=== PATIENT | female | born 1995 | race Caucasian/White ===

== ENCOUNTER 2023-10-07 14:03 | Inpatient (IN) | payer MEDICAID, SELFPAY ==
[2023-10-07] VITALS (43 sets, daily range): BP systolic 104–128; BP diastolic 51–74; PULSE 84–112; RESP 13–26; TEMP 36.2–36.8; O2SAT 84–98; BMI 39.9
--- NOTE | ~2023-10-07 | XR_ITS ---
EXAMINATION: XR chest 1V portable DATE: 10/07/2023 15:03 INDICATION: Shortness of breath and recent pneumonia TECHNIQUE: frontal view of the chest was obtained. COMPARISON: Chest radiograph dated 12/16/[address] dated 10/07/2023 FINDINGS: Airspace opacities in the bilateral mid and lower lung zones with basilar predominance. Pattern on CT favors pneumonia over pulmonary edema. No pleural effusion or pneumothorax. The cardiomediastinal si lhouette is normal. IMPRESSION: 1. Opacities in bilateral mid and lower lung zones most likely related to pneumonia. Reviewed, dictated and finalized at location A. WARE DESIGN ENGINEER IMPRESSION: 1. Opacities in bilateral mid and lower lung zones most likely related to pneum onia.
--- NOTE | ~2023-10-07 | CT_ITS ---
EXAMINATION: CTA chest PE protocol DATE: 10/07/2023 14:44 INDICATION: Hypoxia and dyspnea TECHNIQUE: Computed tomography (CT) pulmonary angiogram of the chest was performed with 100 mL Omnipa que-350 intravenous contrast. Additional 3D reconstructions utilizing coronal maximum intensity proje ction (MIP) were performed. Automated exposure control and iterative reconstruction technique were em ployed. The dose-length product was 849.86 mGy-cm. COMPARISON: None FINDINGS: Good contrast opacification of the pulmonary arteries. There is mild streak artifact from dense contr ast in the superior vena cava and right atrium. Mild scattered respiratory motion artifact which only mildly decreases sensitivity in some of the smaller basilar subsegmental pulmonary arteries. No pulm onary embolism identified. Extensive tree-in-bud pattern with small centrilobular nodular groundglass opacities throughout the bilateral lower lobes and in the dependent aspect of the bilateral upper lo bes, right middle lobe and lingula consistent with endobronchial spread of disease most likely pneumo sanjiv. More dense consolidation in the basilar segments of the left lower lobe and to lesser degree at the posterior lingula and basilar right lower lobe likely combination of additional pneumonia and ate lectasis. Thinner bands of discoid atelectasis in the bilateral lower lobes. No pleural effusion. Hea rt size is normal. Small pericardial effusion. Thoracic aorta is normal in caliber with no dissection . There are multiple mildly enlarged bilateral hilar and mediastinal lymph nodes which are likely mimi ctive. Visualized upper abdomen is unremarkable. Mild to moderate thoracic spondylosis with chronic m ild anterior wedging at T7 and T11. IMPRESSION: 1. No pulmonary embolism. 2. Extensive bilateral lung disease most prominent in the lower lobes and to lesser degree in the rem aining lobes with pattern most consistent with pneumonia. 3. Likely reactive mediastinal and bilateral hilar lymphadenopathy which is likely reactive. Reviewed, dictated and finalized at location A. CTOR [employer] MARKETING ANALYTICS IMPRESSION: 1. No pulmonary embolism. 2. Extensive bilateral lung disease most prominent in the lower lobes and to le sser degree in the remaining lobes with pattern most consistent with pneumonia. 3. Likely reactive mediastinal and bilateral hilar lymphadenopathy which is lik mercy reactive.
--- NOTE | 2023-10-07 14:14 | ECG_ITS ---
Measurements Intervals [place] Rate: 109 P: 21 [place]: 150 QRS: 51 QRSD: 84 T: -40 QT: 297 QTc: 401 Interpretive Statements SINUS TACHYCARDIA ST-T WAVE ABNORMALITY IN ANTEROLAT/INF LEADS- CONSIDER ISCHEMIA BASELINE ARTIFACT- I, II, III, AVR, AVL, AVF ABNORMAL ECG NO PREVIOUS ECG AVAILABLE FOR COMPARISON Electronically Signed On 10-08-2023 10:12:45 [employer] by Bartolome Drake D.O.
[2023-10-07 14:31] LABS: Base Excess ABG -0.2 mEq/l (+/-2.0); Carboxyhemoglobin 0.9 % THb (0-2.0); Fractional Inspired Oxygen 36 %; Methemoglobin ABG 0.2 %THb (0-1.5); Oxygen Content ABG 19.1 %vol (16.0-22.0); Oxygen Saturation ABG 95.7 % (95.0-100.0); Oxyhemoglobin 93.5 % THb (90.0-100.0); PCO2 ABG 25.9 mmHg (35.0-45.0); PO2 ABG 68.6 mmHg (80.0-100.0); PO2 FiO2 Ratio Arterial Blood 1.91 %; Reduced Hemoglobin 5.4 %THb (0-5.0); Total Hemoglobin 14.5 g/dL (12.0-18.0)
[2023-10-07 14:33] LABS: Device NASAL CANNULA; Modified Allen's Test Pass; Site Drawn LEFT RADIAL; pH ABG 7.526 (7.350-7.450)
[2023-10-07 14:36] LABS: Estimated CRCL calculation 128 ml/min; Estimated Glomerular Filt Rate > 60
[2023-10-07 14:41] LABS: Basophils Absolute Auto 0.1 K/mm3 (0.0-0.1); Basophils Percent Auto 0.5 % (0.2-1.2); Eosinophils Absolute Auto 0.3 K/mm3 (0-0.3); Eosinophils Percent Auto 1.7 % (0-4.4); Hematocrit 42.5 % (37.0-47.0); Hemoglobin 13.7 g/dL (12.0-15.0); Immature Granulocyte Absolute 0.43 K/mm3 (0.00-0.031); Immature Granulocyte Percent A 2.6 % (0-0.5); Lymphocytes Absolute Auto 1.63 K/mm3 (0.9-3.2); Lymphocytes Percent Auto 9.7 % (18.3-44.2); Mean Corpuscular HGB Conc 32.2 g/dl (32-36); Mean Corpuscular Hemoglobin 29.8 pg (26-34); Mean Corpuscular Volume 92.4 fl (80-100); Mean Platelet Volume 9.7 fl (7.4-10.4); Monocytes Absolute Auto 1.2 K/mm3 (0.1-0.6); Monocytes Percent Auto 6.9 % (2.6-8.5); Neutrophils Absolute Auto 13.1 K/mm3 (1.3-6.7); Neutrophils Percent Auto 78.6 % (45.5-73.1); Platelet Count Result 413 k/mm3 (150-375); Red Cell Distribution Width 13.3 % (11.5-14.5); White Blood Count 16.7 K/mm3 (4.5-10.0)
[2023-10-07 14:50] LABS: Alanine Aminotransferase 33 U/L (6-35); Alkaline Phosphatase 86 U/L (38-126); Anion Gap 10 mmol/L (8-16); Aspartate Amino Transferase 25 U/L (14-36); Bilirubin,Total 0.6 mg/dL (0.2-1.3); Blood Urea Nitrogen 14 mg/dL (7-17); Calcium 9.1 mg/dL (8.4-10.2); Carbon Dioxide 26 mmol/L (22-30); Chloride 100 mmol/L (98-107); Estimated CRCL calculation 128 ml/min; Estimated Glomerular Filt Rate > 60; Glucose 112 mg/dL (65-110); Partial Thromboplastin Time 29.9 SECONDS (22.3-36.8); Potassium 3.6 mmol/L (3.4-5.0); Sodium 136 mmol/L (137-145)
[2023-10-07 14:51] LABS: Prothrombin Time 13.9 Seconds (11.1-14.7)
[2023-10-07 15:17] LABS: Influenza A QL RT-PCR Negative (Negative); Influenza B QL RT-PCR Negative (Negative); RSV RNA, RT-PCR Negative (Negative); SARS-CoV-2 RNA PCR Negative (Negative)
[2023-10-07] MEDS: AZITHROMYCIN 500 MG/NS 250 ML 500 MG/250 ML BAG 250 MG IVPB (15:50)
--- NOTE | 2023-10-07 16:05 | ED.SOB ---
HPI - SOB/Dyspnea General Chief Complaint: Shortness of Breath/Dyspnea Stated Complaint: low oxygen Time Seen by Provider: 10/07/23 14:13 History of Present Illness HPI Narrative: Patient is a 27-year-old female who presents ER with low oxygen saturation from her primary care physician's office. Patient developed infectious symptoms last week. She had a negative COVID test. She has been having cough and fever as well as exertional dyspnea. She went to the PCP today and was found to have pulse oximetry reading in the mid to low 80s. Patient does have a sister who currently is being treated for bacterial pneumonia. Related Data Home Medications Medication Instructions Recorded Confirmed ferrous sulfate 325 mg (65 mg 325 mg PO DAILY 01/26/20 02/25/23 iron) tablet Allergies Allergy/AdvReac Type Severity Reaction Status Date / Time nickel Allergy Unknown Unknown Verified 12/14/19 11:23 aripiprazole [From Abilify] AdvReac Muscle Verified 12/14/19 11:23 Spasms Review of Systems Review of Systems: All systems reviewed & are unremarkable except as noted in HPI and below Constitutional: Constitutional: Denies chills, Reports fatigue and Reports fever(s) ENT: Denies nasal congestion and Denies sore throat Cardiovascular: Cardiovascular: Denies chest pain, Denies rapid heart rate and Denies radiating jaw, neck or arm pain Respiratory: Respiratory: Reports cough and Reports dyspnea Gastrointestinal: Gastrointestinal: Denies abdominal pain, Denies diarrhea, Denies nausea and Denies vomiting PMFSH Past Medical History Medical History (Updated 10/07/23 @ 18:52 by Colt Adames MD) Body mass index (BMI) 35.0-35.9, adult (09/16/19) Chronic seborrheic dermatitis Dog bite Elevated high sensitivity C-reactive protein Hypersomnia Insomnia Iron deficiency anemia, unspecified Morbid obesity with BMI of 40.0-44.9, adult Muscle spasm Pelvic pain Rash and other nonspecific skin eruption Snoring Tardive dyskinesia Surgical History Surgical History (Updated 10/07/23 @ 18:50 by Colt Adames MD) No pertinent past surgical history Family History Family History Grandparent Diabetes mellitus Hypertension Family history of lung cancer, Onset Age: 71 Family history of primary malignant neoplasm of liver, Onset Age: 67 Mother Family history of migraine headaches Patient's mother is in good health Social History Social History (Updated 02/25/23 @ 10:15 by Rhonda Harrison MA) Smoking status: Never smoker Alcohol intake: never Substance use: never Substance use type: does not use Current Housing: Decline to Answer Concerned About Future Housing: Decline to Answer Difficulty Paying Gas/Electric Bills: Decline to Answer Difficulty Paying for Meds: Decline to Answer Currently Unemployed: Decline to Answer Education: Decline to Answer Difficulty w/ Childcare or Family Care: Decline to Answer Exam Narrative: GENERAL: Ill-appearing, well-nourished, and in mild acute distress. HEAD: Normocephalic, atraumatic. ENT: Mucous membranes moist. NECK: Supple. CHEST: Faint crackles throughout. Increased respiratory rate. HEART: Regular rate and rhythm. Normal peripheral pulses. ABDOMEN: Soft, nontender, nondistended. EXTREMITIES: Normal range of motion. No edema. SKIN: Warm, dry, no rash. NEURO: Alert and oriented x3. PSYCH: Normal mood and affect. Course Course Emergency Course: Patient with pneumonia. IV antibiotics ordered. Admit to hospitalist service and accepted by their service. Patient on high flow nasal cannula tolerating well. 1848: Patient currently being boarded in the ER. She has been turned up to 10 L on her high flow however she is now satting in the mid to high 80s. Patient be switched to BiPAP. Hospitalist service notified. Nebulizer treatment also ordered. Vital Signs Vital signs:
--- NOTE | 2023-10-07 17:52 | PC.NURSE ---
Called and spoke with Jah in chemistry about blood cultures saying ordered when both sets have been sent. This RN was told I am very busy and will take care of it eventually.
[2023-10-07] MEDS: IPRATROPIUM BR 0.02% INH SOLN 0.5 MG/2.5 ML VIAL 1.5 MG INHALATION (19:02)
[2023-10-07] MEDS: ALBUTEROL SULFATE NEB 2.5 MG/3 ML INH 15 MG INHALATION (19:03)
--- NOTE | 2023-10-07 20:55 | PM.IMHP ---
H&P: HPI History of Present Illness Date/Time: 10/07/23 19:00 Chief Complaint: Shortness of breath. Narrative: This is a pleasant 27-year-old female with history of depression anxiety presented to the emergency department from Dr. Young's office for evaluation of shortness of breath. The patient provides the following history. Her mother provides additional information, with the patient's permission. She has not been feeling well for approximately 10 days with productive cough, shortness of breath, fever, and poor appetite. She was started on Augmentin shortly after her symptoms began and her fever went away after about 4 days. Unfortunately she continues to cough and has increasing shortness of breath and she is feeling worse rather than better. Her sister had pneumonia not too long ago and she is worried she may have picked that up from her. Because of ongoing symptoms she went to her doctor's office and she was referred to the ED after she was found to have an SpO2 of 88% on room air. She denies recent travel, dysphagia and concerns for aspiration, smoking, and vaping. She has no history of asthma or allergies and denies environmental exposures. In the ED: She was afebrile on arrival. Blood pressures have been stable. SpO2 has been as low as 86% on room air. She was initially requiring upwards of 8 L high-flow nasal cannula however due to increasing shortness of breath and hypoxia she was started on BiPAP. Her labs were pretty unremarkable aside from a WBC count of 16.7. She tested negative for influenza, RSV, and COVID. Chest CTA showed no pulmonary embolism but did note extensive bilateral lung disease compatible with pneumonia and reactive lymphadenopathy. She was given an hour long nebulizer treatment and received 500 mg azithromycin and 1 g ceftriaxone. She is being admitted in this setting for further treatment. Review of Systems Review of Systems: Twelve systems were reviewed and are negative except for as per HPI. [facility] Past Medical History Medical History (Updated 10/08/23 @ 00:27 by Rekha Durant PA-C) Chronic seborrheic dermatitis Depression with anxiety Iron deficiency anemia, unspecified Tardive dyskinesia Surgical History Surgical History No pertinent past surgical history Family History Family History Grandparent Diabetes mellitus Hypertension Family history of lung cancer, Onset Age: 71 Family history of primary malignant neoplasm of liver, Onset Age: 67 Mother Family history of migraine headaches Patient's mother is in good health Social History Social History (Updated 10/08/23 @ 00:25 by Rekha Durant PA-C) Social History: Surrogate medical decision maker: Dorothy Albert, mother. Code status: Full code. Smoking status: Never smoker Alcohol intake: never Substance use: never Substance use type: does not use Lack of Transportation: No Lack of Food: Never True Current Housing: I Have Housing Concerned About Future Housing: No Difficulty Paying Gas/Electric Bills: No Difficulty Paying for Meds: No Currently Unemployed: No Education: High School Diploma/GED Difficulty w/ Childcare or Family Care: No Additional living arrangements comments: Lives with family in [place]. Additional occupation/education comments: Works in [employer]. Spiritual care concerns: No Meds Home Medications and Allergies Home Medications Medication Instructions Recorded Confirmed Type ferrous sulfate 325 mg (65 mg 325 mg PO DAILY 01/26/20 10/07/23 History iron) tablet fluoxetine 40 mg capsule 40 mg PO DAILY #90 caps 02/25/23 10/07/23 Rx Allergies Allergy/AdvReac Type Severity Reaction Status Date / Time nickel Allergy Unknown Unknown Verified 12/14/19 11:23 aripiprazole [From Abilify] AdvReac Muscle Verified 12/14/19 11:23 Spasm
--- NOTE | 2023-10-07 22:12 | ADMGEN ---
This patient, Maritza Albert, was admitted to IMU Room 203-01. Patient/family oriented to hospital policies and general routines including ID bracelet, bed and alarms, visiting hours, pain management, procedures, bathroom and other care routines, personal items, smoking policy, room service/diet, and visiting hours. Information on how to activate the Rapid Response Team has been discussed. Patient/Family are encouraged to report perceived risks to care and to ask questions if they do not understand what they are told or what they should do.
[2023-10-08] VITALS (25 sets, daily range): BP systolic 115–136; BP diastolic 56–75; PULSE 80–108; RESP 14–20; TEMP 36.3–37.2; O2SAT 93–99
[2023-10-08] MEDS: VANCOMYCIN 1,250 MG/NS 250 ML 1,250 MG/250 ML BAG 166.67 MG IVPB ×2 (01:21→03:01)
[2023-10-08] MEDS: IPRATROPIUM BR 0.02% INH SOLN 0.5 MG/2.5 ML VIAL INHALATION ×4 (01:35→20:01)
[2023-10-08] MEDS: ALBUTEROL SULFATE NEB 2.5 MG/3 ML INH INHALATION ×4 (01:36→20:01)
[2023-10-08 05:22] LABS: Hematocrit 38.5 % (37.0-47.0); Hemoglobin 12.3 g/dL (12.0-15.0); Mean Corpuscular HGB Conc 31.9 g/dl (32-36); Mean Corpuscular Hemoglobin 29.8 pg (26-34); Mean Corpuscular Volume 93.2 fl (80-100); Mean Platelet Volume 9.7 fl (7.4-10.4); Platelet Count Result 375 k/mm3 (150-375); Red Blood Count 4.13 M/mm3 (4.2-5.4); Red Cell Distribution Width 13.3 % (11.5-14.5); White Blood Count 13.3 K/mm3 (4.5-10.0)
[2023-10-08 05:47] LABS: Anion Gap 7 mmol/L (8-16); Blood Urea Nitrogen 12 mg/dL (7-17); Calcium 8.5 mg/dL (8.4-10.2); Carbon Dioxide 26 mmol/L (22-30); Chloride 103 mmol/L (98-107); Estimated CRCL calculation 141 ml/min; Estimated Glomerular Filt Rate > 60; Glucose 105 mg/dL (65-110); Magnesium 2.4 mg/dL (1.6-2.3); Potassium 3.9 mmol/L (3.4-5.0); Sodium 136 mmol/L (137-145)
[2023-10-08] MEDS: ENOXAPARIN 40 MG/0.4 ML SYRINGE SUB-Q (10:24)
[2023-10-08] MEDS: FERROUS SULFATE 325 MG TABLET DR PO (10:25)
[2023-10-08] MEDS: FLUoxetine HCL 20 MG CAPSULE 40 MG PO (10:25)
[2023-10-08] MEDS: guaiFENesin 12 HR 600 MG TABCR PO ×2 (10:25→20:23)
--- NOTE | 2023-10-08 11:24 | PM.IMPN ---
Progress Note: A&P Assessment and Plan (1) Acute respiratory failure with hypoxia: Code(s): J96.01 - Acute respiratory failure with hypoxia Status: Acute Assessment and Plan: Azithromycin, Rocephin initiated 10/07 Nebulizer treatments as needed Legionella/pneumococcal/mycoplasma antigens ordered and pending (2) Multifocal pneumonia: Code(s): J18.9 - Pneumonia, unspecified organism Status: Acute Assessment and Plan: See above (3) Depression with anxiety: Code(s): F41.8 - Other specified anxiety disorders Status: Acute Assessment and Plan: Continue home meds Plan DVT prophylaxis with SCDs GI prophylaxis not indicated Code status full code Subjective Date/time seen: 10/08/23 11:24 Interval history: 27-year-old female with history of depression anxiety presented to the emergency department from Dr. Young's office for evaluation of shortness of breath is currently being treated for multifocal pneumonia refractory to outpatient Augmentin treatment. No overnight events noted. No nausea, vomiting or diarrhea. No fevers or chills. Still SOB, feels better than when she got here. Review of Systems Review of Systems: 12 point review of systems was assessed and was negative except as noted in the HPI Exam Narrative: General: No acute distress, alert and oriented per baseline HEENT: Atraumatic, normocephalic, mucous membranes moist CV: Regular rate and rhythm, S1, S2 Lungs: coarse BS throughout, diminished at bases, no wheeze Abdomen: Soft, nontender, nondistended Extremities: Normal to inspection Skin: No rashes noted, no lesions or wounds seen Psych: Euthymic, normal affect Objective Data Vital Signs Vital Signs: Vital Signs - 24 hr 10/07/23 14:05 10/07/23 14:10 10/07/23 14:08 Temperature 98.2 F Pulse Rate 112 H 112 H Respiratory Rate 18 Blood Pressure Pulse Oximetry 86 L 89 L 87 L Oxygen Delivery Room Air Nasal Cannula Nasal Cannula Oxygen Flow Rate 4 3 10/07/23 14:53 10/07/23 14:43 10/07/23 14:45 Temperature Pulse Rate 98 98 Respiratory Rate 20 Blood Pressure Pulse Oximetry 91 93 93 Oxygen Delivery Nasal Cannula Oxygen Flow Rate 2 10/07/23 15:52 10/07/23 14:57 10/07/23 15:00 Temperature Pulse Rate 101 H 103 H Respiratory Rate 21 H 20 Blood Pressure 128/69 113/67 Pulse Oximetry 91 89 L 91 Oxygen Delivery High Flow Therapy with Na Oxygen Flow Rate 8 10/07/23 15:01 10/07/23 15:15 10/07/23 15:16 Temperature Pulse Rate 99 99 97 Respiratory Rate 23 H 18 24 H Blood Pressure 114/69 Pulse Oximetry 90 91 89 L Oxygen Delivery Oxygen Flow Rate 10/07/23 15:30 10/07/23 15:31 10/07/23 15:45 Temperature Pulse Rate 99 102 H 93 Respiratory Rate 20 26 H 13 Blood Pressure 104/69 Pulse Oximetry 89 L 88 L 91 Oxygen Delivery Oxygen Flow Rate 10/07/23 16:00 10/07/23 16:01 10/07/23 16:15 Temperature Pulse Rate 92 93 92 Respiratory Rate 17 17 16 Blood Pressure 105/51 L Pulse Oximetry 92 91 93 Oxygen Delivery Oxygen Flow Rate 10/07/23 16:30 10/07/23 16:31 10/07/23 16:45 Temperature Pulse Rate 92 91 90 Respiratory Rate 26 H 18 21 H Blood Pressure 108/59 L Pulse Oximetry 93 93 95 Oxygen Delivery Oxygen Flow Rate 10/07/23 17:00 10/07/23 17:01 10/07/23 17:15 Temperature Pulse Rate 91 88 84 Respiratory Rate 22 H 21 H 20 Blood Pressure 107/58 L Pulse Oximetry 95 96 97 Oxygen Delivery Oxygen Flow Rate 10/07/23 17:30 10/07/23 17:31 10/07/23 17:45 Temperature Pulse Rate 92 92 86 Respiratory Rate 20 21 H 17 Blood Pressure 107/59 L Pulse Oximetry 94 97 98 Oxygen Delivery Oxygen Flow Rate 10/07/23 18:00 10/07/23 18:01 10/07/23 18:15 Temperature Pulse Rate 89 87 88 Respiratory Rate 19 19 21 H Blood Pressure 105/61 Pulse Oximetry 92 97 96 Oxygen Delivery Oxygen Fl
[2023-10-08] MEDS: AZITHROMYCIN 500 MG/NS 250 ML 500 MG/250 ML BAG 250 MG IVPB (12:41)
--- NOTE | 2023-10-08 17:36 | PC.NURSE ---
This patient, Maritza Albert, was transferred to [facility] on 10/08/23 at 1736. Personal belongings sent with patient. Report given to 246. Appropriate documentation sent with patient.
--- NOTE | 2023-10-08 18:43 | PC.NURSE ---
This patient, Maritza Albert, was received from [ IMU] on 10/08/23 at 1843. Patient/family oriented to unit policies and routines
[2023-10-09] VITALS (16 sets, daily range): BP systolic 112–141; BP diastolic 54–79; PULSE 74–102; RESP 16–20; TEMP 36.3–37.1; O2SAT 93–99
[2023-10-09] MEDS: ALBUTEROL SULFATE NEB 2.5 MG/3 ML INH INHALATION ×4 (01:47→20:46)
[2023-10-09] MEDS: IPRATROPIUM BR 0.02% INH SOLN 0.5 MG/2.5 ML VIAL INHALATION ×4 (01:47→20:46)
[2023-10-09 05:38] LABS: Estimated CRCL calculation 142 ml/min; Estimated Glomerular Filt Rate > 60
[2023-10-09] MEDS: FERROUS SULFATE 325 MG TABLET DR PO (08:37)
[2023-10-09] MEDS: guaiFENesin 12 HR 600 MG TABCR PO ×2 (08:37→19:59)
[2023-10-09] MEDS: FLUoxetine HCL 20 MG CAPSULE 40 MG PO (08:37)
[2023-10-09] MEDS: ENOXAPARIN 40 MG/0.4 ML SYRINGE SUB-Q (08:38)
[2023-10-09] MEDS: AZITHROMYCIN 500 MG/NS 250 ML 500 MG/250 ML BAG 250 MG IVPB (12:14)
[2023-10-09 12:24] LABS: Vancomycin Trough 7.6 ug/mL (10.0-20.0)
--- NOTE | 2023-10-09 17:46 | PM.IMPN ---
Progress Note: A&P Assessment and Plan (1) Acute respiratory failure with hypoxia: Code(s): J96.01 - Acute respiratory failure with hypoxia Status: Acute Assessment and Plan: Azithromycin, Rocephin initiated 10/07 Vancomycin added 10/08 Influenza, RSV and COVID PCR negative Nebulizer treatments as needed Legionella/pneumococcal/mycoplasma antigens ordered and pending Sputum Cx pending BCx NGTD Check urine for histoplasmosis and check for hypersensitivity panel. Add chlamydia swab Wean O2 as tolerated. (2) Multifocal pneumonia: Code(s): J18.9 - Pneumonia, unspecified organism Status: Acute Assessment and Plan: See above (3) Depression with anxiety: Code(s): F41.8 - Other specified anxiety disorders Status: Acute Assessment and Plan: Mood stable. Continue home meds (4) Abnormal EKG: Code(s): R94.31 - Abnormal electrocardiogram [ECG] [EKG] Status: Acute Assessment and Plan: EKG reviewed showing sinus tachyacrdia with ST-T wave changes in the anterolateral and inferior leads. Pericarditis? Check Echo. Repeat EKG. Plan DVT prophylaxis with SCDs GI prophylaxis not indicated Code status full code Subjective Date/time seen: 10/09/23 17:46 Interval history: 27-year-old female with history of depression anxiety presented to the emergency department from Dr. Young's office for evaluation of shortness of breath is currently being treated for multifocal pneumonia refractory to outpatient Augmentin treatment. Assuming care. Chart reviewed. SOB and CESPEDES much better. No CP. Cough that is raely productive fof white sputum. No exposure to farm animals. No recent travel or camping. Does have a parrot at home. Denies HIV risk factors. Exam Narrative: AF 97.3 124/79 86 18 97% 2L Gen - NARD Chest - inspiratory crackles bilaterally CV - RRR S1/S2 Abd - Soft, NT/ND, Positive BS Ext - No pedal edema Psych - Nml mood and affect Skin - Warm and dry Objective Data Vital Signs Vital Signs: Vital Signs - 24 hr 10/08/23 18:44 10/08/23 20:01 10/08/23 20:10 Temperature Pulse Rate 96 90 90 Respiratory Rate 16 18 Blood Pressure Pulse Oximetry 98 97 Oxygen Delivery High Flow Nasal Cannula Nasal Cannula Oxygen Flow Rate 4 5 Fraction of Inspired Oxygen 10/08/23 20:12 10/08/23 20:00 10/08/23 20:00 Temperature 97.8 F Pulse Rate 89 103 H Respiratory Rate 18 20 Blood Pressure 122/56 L Pulse Oximetry 96 94 Oxygen Delivery Nasal Cannula Oxygen Flow Rate 3 Fraction of Inspired Oxygen 10/09/23 00:00 10/09/23 01:47 10/08/23 21:00 Temperature 97.7 F Pulse Rate 74 85 85 Respiratory Rate 20 18 Blood Pressure 141/77 H Pulse Oximetry 98 95 Oxygen Delivery Nasal Cannula Oxygen Flow Rate 4 Fraction of Inspired Oxygen 10/09/23 01:58 10/09/23 03:41 10/09/23 07:52 Temperature 97.8 F Pulse Rate 87 76 90 Respiratory Rate 18 20 Blood Pressure 129/74 Pulse Oximetry 96 93 Oxygen Delivery Nasal Cannula Oxygen Flow Rate 4 Fraction of Inspired Oxygen 36 10/09/23 07:52 10/09/23 08:05 10/09/23 08:00 Temperature 97.9 F Pulse Rate 90 102 H 91 Respiratory Rate 18 18 16 Blood Pressure 114/59 L Pulse Oximetry 95 Oxygen Delivery Oxygen Flow Rate Fraction of Inspired Oxygen 10/09/23 08:00 10/09/23 13:56 10/09/23 13:56 Temperature Pulse Rate 102 H 90 Respiratory Rate 18 18 Blood Pressure Pulse Oximetry 95 95 Oxygen Delivery Nasal Cannula Nasal Cannula Oxygen Flow Rate 4 2 Fraction of Inspired Oxygen 28 10/09/23 13:41 10/09/23 12:00 10/09/23 14:10 Temperature 98.7 F Pulse Rate 88 88 Respiratory Rate 16 18 Blood Pressure 112/54 L Pulse Oximetry 96 98 Oxygen Delivery Nasal Cannula Oxygen Flow Rate 4 Fraction of Inspired Oxygen 36 10/09/23 16:00 Temperature 97.3 F L Pulse Rate 86 Respiratory Rate 18 Blood Pr
[2023-10-10] VITALS (20 sets, daily range): BP systolic 114–147; BP diastolic 54–71; PULSE 73–122; RESP 15–18; TEMP 36.4–36.9; O2SAT 93–98
--- NOTE | 2023-10-10 | ECG_ITS ---
Measurements Intervals [place] Rate: 82 P: 16 [place]: 145 QRS: 56 QRSD: 89 T: 8 QT: 364 QTc: 427 Interpretive Statements SINUS RHYTHM NONSPECIFIC ST & T-WAVE ABNORMALITY- ANT/INF LEADS BORDERLINE ECG COMPARED TO ECG 10/07/2023 14:20:29 SINUS RHYTHM NOW PRESENT Electronically Signed On 10-10-2023 8:01:06 RN DOCUMENT IMPROVEMENT by Bartolome Drake D.O.
--- NOTE | 2023-10-10 | ECHO_ITS ---
Patient Info Name: Maritza Albert Age: 28 years : 1995 Gender: Female Ht: 68 in Wt: 266 lbs BSA: 2.46 m2 HR: 78 bpm BP: 125 / 54 mmHg Heart Rhythm: Sinus Rhythm, Tachycardia Technical Quality: Fair Exam Date: 10/10/2023 9:39 AM Exam Location: Echo Lab Exam Room: 246 Patient Status: Inpatient Admit Date: 10/08/2023 Staff Ordering Physician: Gerardo Ferris MD System Architect: Concha Llanes RDCS Attending Provider: Lucas Villanueva MD Exam Type: CA echo dop color flow w con Study Info Indications - ekg changes Complete two-dimensional, color flow and Doppler transthoracic echocardiogram is performed with contrast to opacify the left ventricle and to improve the deliniation of the left ventricle endocardial borders. Contrast/Agitated Saline Contrast/Ag. Saline: Definity Amount: 2.00 ml Administered By: Concha Llanes [facility] Existing IV Access: Yes IV Access Condition: patent with no signs of infiltration Summary 1. Left ventricular chamber dimension is normal. 2. Left ventricular systolic function is normal, estimated at >70%. 3. There is trace mitral valve regurgitation. 4. There is trace tricuspid valve regurgitation. Left Ventricle Left ventricular chamber dimension is normal. Left ventricular systolic function is normal, estimated at >70%. There is no increased left ventricular wall thickness. The left ventricular diastolic function is grade I diastolic dysfunction. Right Ventricle Right ventricular chamber dimension is not well visualized. Left Atria Left atrial chamber dimension is normal. Right Atria Right atrial chamber dimension is normal. Atrial Septum Intact interatrial septum visualized by color flow imaging. Aortic Valve The aortic valve is not well visualized. There is no aortic valve stenosis. There is no aortic valve regurgitation. Pulmonic Valve The pulmonic valve is not well visualized. Mitral Valve There is trace mitral valve regurgitation. Tricuspid Valve There is trace tricuspid valve regurgitation. Pericardium/Pleural There is no pericardial effusion. Inferior Vena Cava Normal inferior vena cava with <50% collapse upon inspiration consistent with elevated right atrial pressure, 8 mmHg. Aorta The aortic root size at the sinus of Valsalva is normal. Left Ventricular Outflow Tract Name Value Normal LVOT 2D LVOT Diameter 2.05 cm LVOT Doppler LVOT Peak Gradient 8 mmHg LVOT Mean Gradient 5 mmHg LVOT VTI 24.85 cm LVOT VTI/AV VTI Ratio 0.93 LVOT Stroke Volume 82.03 ml LVOT CO 19.59 l/min LVOT CI 7.96 L/min/m2 Pulmonic Valve Name Value Normal PV Doppler PV Peak Gradient 5 mmHg Mitral Valve
[2023-10-10] MEDS: ALBUTEROL SULFATE NEB 2.5 MG/3 ML INH INHALATION ×4 (03:04→21:50)
[2023-10-10] MEDS: IPRATROPIUM BR 0.02% INH SOLN 0.5 MG/2.5 ML VIAL INHALATION ×4 (03:04→21:50)
[2023-10-10 05:10] LABS: Basophils Absolute Auto 0.1 K/mm3 (0.0-0.1); Basophils Percent Auto 1.1 % (0.2-1.2); Eosinophils Absolute Auto 0.3 K/mm3 (0-0.3); Hematocrit 38.4 % (37.0-47.0); Immature Granulocyte Absolute 0.16 K/mm3 (0.00-0.031); Immature Granulocyte Percent A 2.1 % (0-0.5); Lymphocytes Absolute Auto 1.87 K/mm3 (0.9-3.2); Mean Corpuscular HGB Conc 31.3 g/dl (32-36); Mean Corpuscular Hemoglobin 29.8 pg (26-34); Mean Corpuscular Volume 95.3 fl (80-100); Mean Platelet Volume 9.8 fl (7.4-10.4); Monocytes Absolute Auto 0.7 K/mm3 (0.1-0.6); Monocytes Percent Auto 8.7 % (2.6-8.5); Neutrophils Absolute Auto 4.4 K/mm3 (1.3-6.7); Neutrophils Percent Auto 59.1 % (45.5-73.1); Platelet Count Result 344 k/mm3 (150-375); Red Blood Count 4.03 M/mm3 (4.2-5.4); Red Cell Distribution Width 13.3 % (11.5-14.5); White Blood Count 7.5 K/mm3 (4.5-10.0)
[2023-10-10 05:20] LABS: Anion Gap 10 mmol/L (8-16); Blood Urea Nitrogen 8 mg/dL (7-17); Calcium 8.7 mg/dL (8.4-10.2); Carbon Dioxide 23 mmol/L (22-30); Chloride 105 mmol/L (98-107); Estimated CRCL calculation 141 ml/min; Estimated Glomerular Filt Rate > 60; Glucose 110 mg/dL (65-110); Potassium 3.6 mmol/L (3.4-5.0); Sodium 138 mmol/L (137-145)
[2023-10-10] MEDS: FERROUS SULFATE 325 MG TABLET DR PO (08:34)
[2023-10-10] MEDS: ENOXAPARIN 40 MG/0.4 ML SYRINGE SUB-Q (08:34)
[2023-10-10] MEDS: guaiFENesin 12 HR 600 MG TABCR PO ×2 (08:34→21:03)
[2023-10-10] MEDS: FLUoxetine HCL 20 MG CAPSULE 40 MG PO (08:34)
[2023-10-10] MEDS: PERFLUTREN LIPID MICROSPHERES 1.5 ML VIAL DILUTED TO 10 ML TOTAL VOLUME IV PUSH (10:00)
--- NOTE | 2023-10-10 10:09 | PM.IMPN ---
Progress Note: A&P Assessment and Plan (1) Acute respiratory failure with hypoxia: Code(s): J96.01 - Acute respiratory failure with hypoxia Status: Acute Assessment and Plan: CTA chest showing extensive bilateral lung disease most prominent in the lower lobes. Failed outpatient Augmentin therapy Azithromycin, Rocephin initiated 10/07; Vancomycin added 10/08 Influenza, RSV and COVID PCR negative Nebulizer treatments as needed Legionella/pneumococcal/mycoplasma antigens ordered and sent Sputum Cx pending MRSA nasal swab negative. BCx NGTD Exposure to birds. Urine for histoplasmosis and check for hypersensitivity panel. Add chlamydia swab Wean O2 as tolerated. Change Vanco and Azithro to Doxy. (2) Multifocal pneumonia: Code(s): J18.9 - Pneumonia, unspecified organism Status: Acute Assessment and Plan: See above (3) Depression with anxiety: Code(s): F41.8 - Other specified anxiety disorders Status: Acute Assessment and Plan: Mood stable. Continue home meds (4) Abnormal EKG: Code(s): R94.31 - Abnormal electrocardiogram [ECG] [EKG] Status: Acute Assessment and Plan: EKG reviewed showing sinus tachyacrdia with ST-T wave changes in the anterolateral and inferior leads. Pericarditis? Repeat EKG still shows some changes but improved. Echo pending. Plan DVT prophylaxis with Lovenox GI prophylaxis not indicated Code status full code Subjective Date/time seen: 10/10/23 10:09 Interval history: 27-year-old female with history of depression anxiety presented to the emergency department from Dr. Young's office for evaluation of shortness of breath is currently being treated for multifocal pneumonia refractory to outpatient Augmentin treatment. Feels better. SOB and cough improved. Still with cough occasional productive of clear sputum. No n/v. Exam Narrative: AF 98.1 114/71 93 15 95% 1L Gen - NARD Chest - inspiratory crackles mid and lower lung andrade bilaterally CV - RRR S1/S2 Abd - Soft, NT/ND, Positive BS Ext - No pedal edema Psych - Nml mood and affect Skin - Warm and dry Objective Data Vital Signs Vital Signs: Vital Signs - 24 hr 10/09/23 13:56 10/09/23 13:56 10/09/23 13:41 Temperature Pulse Rate 90 Respiratory Rate 18 Blood Pressure Pulse Oximetry 95 96 Oxygen Delivery Nasal Cannula Nasal Cannula Oxygen Flow Rate 2 4 Fraction of Inspired Oxygen 28 36 10/09/23 12:00 10/09/23 14:10 10/09/23 16:00 Temperature 98.7 F 97.3 F L Pulse Rate 88 88 86 Respiratory Rate 16 18 18 Blood Pressure 112/54 L 124/79 Pulse Oximetry 98 97 Oxygen Delivery Oxygen Flow Rate Fraction of Inspired Oxygen 10/09/23 20:00 10/09/23 19:59 10/09/23 20:48 Temperature 97.3 F L Pulse Rate 93 Respiratory Rate 18 Blood Pressure 133/77 Pulse Oximetry 99 99 95 Oxygen Delivery Nasal Cannula Nasal Cannula Oxygen Flow Rate 2 2 Fraction of Inspired Oxygen 10/09/23 20:48 10/09/23 21:00 10/10/23 00:00 Temperature 98.2 F Pulse Rate 89 93 91 Respiratory Rate 18 18 18 Blood Pressure 129/70 Pulse Oximetry 97 Oxygen Delivery Oxygen Flow Rate Fraction of Inspired Oxygen 10/10/23 03:05 10/10/23 04:00 10/10/23 03:18 Temperature 98.2 F Pulse Rate 77 95 79 Respiratory Rate 16 18 16 Blood Pressure 125/54 L Pulse Oximetry 94 Oxygen Delivery Oxygen Flow Rate Fraction of Inspired Oxygen 10/10/23 08:07 10/10/23 08:09 10/10/23 08:22 Temperature Pulse Rate 73 75 Respiratory Rate 16 16 Blood Pressure Pulse Oximetry 93 Oxygen Delivery Nasal Cannula Oxygen Flow Rate 1 Fraction of Inspired Oxygen 10/10/23 09:44 Temperature 98.1 F Pulse Rate 93 Respiratory Rate 15 Blood Pressure 114/71 Pulse Oximetry 95 Oxygen Delivery Oxygen Flow Rate Fraction of Inspired Oxygen Intake/Output Intake/Output: Intake & Output
[2023-10-10] MEDS: DOXYCYCLINE HYCLATE 100 MG TABLET PO ×2 (11:07→21:03)
--- NOTE | 2023-10-10 12:05 | IVDEFINITY ---
Prior to administration of IV Definity the patient was educated on the risks and benefits of the imaging enhancing agent including potential adverse side effects. The patient verbalized understanding. Allergies were verified. No exclusion criteria were identified and at least one of the following inclusion criteria were met: 1) physician request, 2) patient technically difficult to image (per the [place] [employer] guidelines of two or more segments not discernable within the apical view), or 3) questionable left ventricular function. ?
[2023-10-10 14:38] LABS: Pneumococcal Antigen Urine Not Detected (Not Detected)
--- NOTE | 2023-10-10 14:49 | PC.NURSE ---
On 10/10/23, the student, [Goyo Metz], provided care and completed [facility] documentation on this patient. I have reviewed the student's documentation and agree with the findings.
[2023-10-10 20:11] LABS: Mycoplasma IgM Antibody Titer 2538 U/mL (<770)
[2023-10-11] VITALS (15 sets, daily range): BP systolic 120–141; BP diastolic 65–73; PULSE 85–126; RESP 16–20; TEMP 36.2–36.7; O2SAT 93–99
[2023-10-11 02:40] LABS: Legionella pneumophila Ag Ur Not Detected (Not Detected)
[2023-10-11] MEDS: IPRATROPIUM BR 0.02% INH SOLN 0.5 MG/2.5 ML VIAL INHALATION ×3 (03:27→13:07)
[2023-10-11] MEDS: ALBUTEROL SULFATE NEB 2.5 MG/3 ML INH INHALATION ×3 (03:27→13:07)
[2023-10-11] MEDS: ENOXAPARIN 40 MG/0.4 ML SYRINGE SUB-Q (08:30)
[2023-10-11] MEDS: DOXYCYCLINE HYCLATE 100 MG TABLET PO ×2 (08:32→20:51)
[2023-10-11] MEDS: FLUoxetine HCL 20 MG CAPSULE 40 MG PO (08:33)
[2023-10-11] MEDS: FERROUS SULFATE 325 MG TABLET DR PO (08:33)
[2023-10-11] MEDS: guaiFENesin 12 HR 600 MG TABCR PO ×2 (08:33→20:51)
--- NOTE | 2023-10-11 10:23 | PC.NURSE ---
On 10/11/23, the student, [Cara Ro], provided care and completed [facility] documentation on this patient. I have reviewed the student's documentation and agree with the findings.
--- NOTE | 2023-10-11 10:26 | PM.IMPN ---
Progress Note: A&P Assessment and Plan (1) Acute respiratory failure with hypoxia: Code(s): J96.01 - Acute respiratory failure with hypoxia Status: Acute Assessment and Plan: CTA chest showing extensive bilateral lung disease most prominent in the lower lobes. Failed outpatient Augmentin therapy Azithromycin, Rocephin initiated 10/07; Vancomycin added 10/08 Influenza, RSV and COVID PCR negative Nebulizer treatments as needed Legionella/pneumococcal pending. Mycoplasma IgM positive (has low specificity) Sputum Cx NGTD MRSA nasal swab negative. BCx NGTD Exposure to birds. Urine for histoplasmosis and check for hypersensitivity panel. Chlamydia swab pending Wean O2 as tolerated. Changed Vanco and Azithro to Doxycycline on 10/10 Run confirmation PCR for mycoplasma. Home O2 evaluation. (2) Multifocal pneumonia: Code(s): J18.9 - Pneumonia, unspecified organism Status: Acute Assessment and Plan: See above (3) Depression with anxiety: Code(s): F41.8 - Other specified anxiety disorders Status: Acute Assessment and Plan: Mood stable. Continue home meds (4) Abnormal EKG: Code(s): R94.31 - Abnormal electrocardiogram [ECG] [EKG] Status: Acute Assessment and Plan: EKG reviewed showing sinus tachyacrdia with ST-T wave changes in the anterolateral and inferior leads. Pericarditis? Repeat EKG still shows some changes but improved. Echo showing EF 70% and Grade I diastolic dysfunction. Discussed with Cardiology. Recommended outpatient evaluation once she is feeling better. Plan DVT prophylaxis with Lovenox GI prophylaxis not indicated Code status full code Subjective Date/time seen: 10/11/23 10:26 Interval history: 27-year-old female with history of depression anxiety presented to the emergency department from Dr. Young's office for evaluation of shortness of breath is currently being treated for multifocal pneumonia refractory to outpatient Augmentin treatment. No problems overnight. Slept well. Feels less SOB. Cough is lessening Exam Narrative: AF 98.1 121/65 105 20 93% ra Gen - NARD Chest - coarse inspiratory crackles mid and lower lung andrade bilaterally CV - RRR S1/S2 Abd - Soft, NT/ND, Positive BS Ext - No pedal edema Psych - Nml mood and affect Skin - Warm and dry Objective Data Vital Signs Vital Signs: Vital Signs - 24 hr 10/10/23 12:00 10/10/23 13:10 10/10/23 13:16 Temperature 97.6 F Pulse Rate 90 77 80 Respiratory Rate 18 16 16 Blood Pressure 147/66 H Pulse Oximetry 95 Oxygen Delivery Oxygen Flow Rate 10/10/23 14:32 10/10/23 19:57 10/10/23 20:00 Temperature 98.4 F 98.0 F Pulse Rate 122 H 94 Respiratory Rate 17 18 Blood Pressure 135/68 131/71 Pulse Oximetry 96 98 98 Oxygen Delivery Nasal Cannula Oxygen Flow Rate 1 10/10/23 21:52 10/10/23 21:52 10/10/23 23:30 Temperature 98.2 F Pulse Rate 88 91 Respiratory Rate 16 18 Blood Pressure 130/68 Pulse Oximetry 95 96 Oxygen Delivery Nasal Cannula Oxygen Flow Rate 1 10/10/23 23:56 10/11/23 03:29 10/10/23 22:05 Temperature Pulse Rate 89 91 Respiratory Rate 16 16 Blood Pressure Pulse Oximetry 96 Oxygen Delivery High Flow Nasal Cannula Oxygen Flow Rate 2 10/11/23 03:32 10/11/23 04:00 10/11/23 08:11 Temperature 97.2 F L Pulse Rate 90 101 H Respiratory Rate 16 18 Blood Pressure 141/70 H Pulse Oximetry 97 95 Oxygen Delivery Nasal Cannula Oxygen Flow Rate 1 10/11/23 08:11 10/11/23 08:26 10/11/23 08:00 Temperature 98.1 F Pulse Rate 91 105 H 92 Respiratory Rate 20 20 20 Blood Pressure 121/65 Pulse Oximetry 95 Oxygen Delivery Oxygen Flow Rate 10/11/23 08:57 10/11/23 09:00 Temperature Pulse Rate Respiratory Rate Blood Pressure Pulse Oximetry 93 Oxygen Delivery Room Air Room Air Oxygen Flow Rate Intake/Output Intake/Output:
--- NOTE | 2023-10-11 16:07 | HOMEO2EVAL ---
Evaluation was performed at [facility] Home Oxygen Evaluation RC: Home Oxygen (O2) Evaluation Start: 10/11/23 10:27 Freq: ONCE Status: Active Protocol: RPE Activity Type Activity Date Activity User E-sign Co-sign Detail Recorded Client Recorded Date Recorded By Document 10/11/23 15:45 [email or web address] [id number] 10/11/23 16:07 RAMSEY Document 10/11/23 15:50 [email or web address] [id number] 10/11/23 16:07 RAMSEY Document 10/11/23 16:00 [email or web address] [id number] 10/11/23 16:07 RMASEY 10/11/23 10/11/23 10/11/23 15:45 15:50 16:00 Home O2 Evaluation [Oxygen] -Test Phase Resting Exercise Resting -Oxygen Delivery Room Air Room Air Room Air [Pulse Oximetry] -Pulse Oximetry (90-100 %) 96 94 96 [Pulse Rate] -Pulse Rate (60-100 beats/min) 96 126 H 100 [Exercise] -Ambulation Distance (feet) 500 -Ambulation Distance (meters) 152.39 [Comments] -Home Oxygen Evaluation Comments NO O2 NEEDED AT THIS TIME. [Charges] -Treatment Charges O2 Evaluation - Inpatient
--- NOTE | 2023-10-11 16:07 | PCRCNOTE ---
HOME O2 EVAL COMPLETED, NO HOME O2 NEEDED AT THIS TIME. RN NOTIFIED
--- NOTE | 2023-10-11 19:38 | PM.DS ---
DS: Admitting Diagnosis Discharge Date 10/11/23 Admitting Diagnosis Shortness of breath DS: Discharge Diagnosis Discharge Diagnosis (1) Acute respiratory failure with hypoxia: Code(s): J96.01 - Acute respiratory failure with hypoxia Status: Acute (2) Multifocal pneumonia: Code(s): J18.9 - Pneumonia, unspecified organism Status: Acute (3) Depression with anxiety: Code(s): F41.8 - Other specified anxiety disorders Status: Acute (4) Abnormal EKG: Code(s): R94.31 - Abnormal electrocardiogram [ECG] [EKG] Status: Acute DS: Summary Hospital Course Reason for hospitalization: 27-year-old female with history of depression anxiety presented to the emergency department from Dr. Young's office for evaluation of shortness of breath is currently being treated for multifocal pneumonia refractory to outpatient Augmentin treatment. Please see H&P for details. Hospital Course: Patient presents with SOB and found to be hypoxic. ABG 7.53// on 4L. CTA chest showing no PE but extensive bilateral lung disease most prominent in the lower lobes c/w PNA and likely reactive mediastinal and bilateral hilar lymphadenopathy. She failed outpatient Augmentin therapy. She was started on Azithromycin, Rocephin on 10/07; Vancomycin added 10/08. Influenza, RSV and COVID PCR were negative. Nebulizer treatments added. Legionella/pneumococcal urine Ag were negative. Mycoplasma IgM positive (has low specificity) and confirmatory PCR test ordered. Sputum Cx negative. MRSA nasal swab negative. BCx NGTD. She is exposed to birds with a parrot at home. Urine for histoplasmosis pending. Hypersensitivity panel ordered. Chlamydia swab sent. She was on supplemental oxygen. We held off on steroids given that this was more likely infectious. No wheezing. WBC was 16.7K and this trended to normal. CMP normal except slightly low sodium. EKG reviewed showing sinus tachycardia with ST-T wave changes in the anterolateral and inferior leads. Possible pericarditis? Repeat EKG still shows some changes but improved overall. Echo showing?EF 70% and Grade I diastolic dysfunction. Discussed with Cardiology. Recommended outpatient evaluation once she is feeling better. Patient had clinical improvement. We changed Vanco and Azithro to Doxycycline on 10/10. We were able to wean her to room air. She did not need home O2 by respiratory evaluation. She overall dd well and was able to be discharged home on 10/11/23. Status at Discharge Cognitive/behavioral status at discharge: stable Time Spent with Patient Time attestation: Total time spent providing and/or coordinating discharge services: 36 minutes Time spent: Greater than 30 minutes Exam Narrative: AF 98.1 121/65 105 20 93% ra Gen - NARD Chest - coarse inspiratory crackles mid and lower lung andrade bilaterally CV - RRR S1/S2 Abd - Soft, NT/ND, Positive BS Ext - No pedal edema Psych - Nml mood and affect Skin - Warm and dry DS: Data Data Completed and Pending Labs on day of discharge: Labs from last 24 hours 10/11/23 10/08/23 10/08/23 11:47 07:05 04:54 C. pneumoniae DNA (PCR) Pending Ur L.pneumophila Ag Not detected Mycoplasma pneumon IgM 2538 H Preliminary micro results at discharge 10/07/23 14:29 Blood Culture - Preliminary Blood 10/07/23 15:41 Blood Culture - Preliminary Blood Discharge Plan Discharge Attending physician on discharge: Gerardo Ferris Discharging Clinician: Gerardo Ferris Anticipated Discharge Date/Time: 10/11/23 19:52 Patient Disposition: Home, Self-Care Activity: as tolerated Diet: regular Discharge Instructions: Take it easy. Do not over-exert yourself Please complete your antibiotic course even if you are starting to feel well. Continue to use Albuterol 4x/day for the next 1-2 days then okay to taper off as you tolerate Contact your doctor or call 911 and come to the E
[2023-10-15 08:11] LABS: Chlamydia pneumoniae by PCR Not Detected
--- NOTE | 2023-10-17 09:43 | PC.NURSE ---
Chlamydia DNA PCR is negative, urine histoplasmosis is normal. Mycoplasma DNA PCR is elevated at 2538. NML is <770. Dr. Ferris aware. Results faxed to Dr. Mesa.
== END 2023-10-11 21:15 | disposition home or self-care (01) | DRG 139 ==
LOC: ANHED 18:52 → ANHIMU 21:19 → ANH2MED 10-08 18:30
PROVIDERS: Physician Assistant; Admitting Provider Internal Medicine; Emergency Provider Emergency Medicine; PCP Family Medicine; Visit Provider Internal Medicine
DX: J18.9 Pneumonia, unspecified organism (principal); J96.01 Acute respiratory failure with hypoxia; F41.8 Other specified anxiety disorders; R94.31 Abnormal electrocardiogram [ECG] [EKG]; Z20.822 Contact with and (suspected) exposure to COVID-19; D50.9 Iron deficiency anemia, unspecified; E66.01 Morbid (severe) obesity due to excess calories; Z68.41 Body mass index [BMI] 40.0-44.9, adult
CPT/HCPCS: 36415; 36600; 71045; 71275; 80048; 80053; 80202; 82375; 82565; 82805; 83050; 83735; 85025; 85027; 85610; 85730; 86331; 86606; 86609; 86738; 87040; 87070; 87081; 87205; 87385; 87449; 87486; 87637; 87899; 93005; 94002; 94003; 94618; 94640; 96365; 96366; 96368; 96372; 99285; A9270; C8929; G0378; G0379; J0456; J0696; J1650; J3370; Q9957; Q9967

== ENCOUNTER 2023-12-02 16:01 | Emergency (ER) | payer MEDICAID, SELFPAY ==
--- NOTE | ~2023-12-02 | XR_ITS ---
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 posterior pain . COMPARISON: None available. FINDINGS: Normal mineralization. No fracture or dislocation. No lytic or blastic lesion. Mild scatte red degenerative change. No erosion or periosteal change. Soft tissues within normal limits. IMPRESSION: No acute osseous finding in the left wrist. Reviewed, dictated and finalized at location [facility]. [employer]
--- NOTE | 2023-12-02 16:38 | ED.UPPEXIN ---
HPI - Extremity Injury (Upper) General Chief Complaint: Extremity Injury, Upper Stated Complaint: sprain lt wrist Time Seen by Provider: 12/02/23 17:03 Source: patient and RN notes reviewed Mode of arrival: ambulatory Limitations: no limitations History of Present Illness HPI narrative: 28-year-old female presents concern for left wrist pain. She reports she hyperflexed her wrist 6 days ago and since then has had some dorsal pain. She reports a bump when she flexes her wrist. She reports she used ice and anti-inflammatory cream without relief. She denies decreased sensation, strength, range of motion her digits. Related Data Home Medications Medication Instructions Recorded Confirmed ferrous sulfate 325 mg (65 mg 325 mg PO DAILY 01/26/20 12/02/23 iron) tablet Allergies Allergy/AdvReac Type Severity Reaction Status Date / Time nickel Allergy Unknown Unknown Verified 12/02/23 16:51 aripiprazole [From Abilify] AdvReac Muscle Verified 12/02/23 16:51 Spasms Review of Systems Review of Systems: CONSTITUTIONAL: Denies malaise, chills, sweats, or fever. SKIN: Denies rash or itching, open skin, laceration, abrasion, redness, warmth, swelling. MUSCULOSKELETAL: Reports left wrist pain NEUROLOGIC: Denies numbness, weakness All systems reviewed & are unremarkable except as noted in HPI and below PMFSH Past Medical History Medical History (Updated 12/02/23 @ 17:17 by Shayy Escobar NP) Abnormal echocardiogram Acute respiratory failure Acute respiratory failure with hypoxia Acute sinusitis Chronic seborrheic dermatitis Depression with anxiety Elevated BP without diagnosis of hypertension Iron deficiency anemia, unspecified Pneumonia Tardive dyskinesia Surgical History Surgical History No pertinent past surgical history Family History Family History Grandparent Diabetes mellitus Hypertension Family history of lung cancer, Onset Age: 71 Family history of primary malignant neoplasm of liver, Onset Age: 67 Mother Family history of migraine headaches Patient's mother is in good health Social History Social History Social History: Surrogate medical decision maker: Dorothy Albert, mother. Code status: Full code. Smoking status: Never smoker Alcohol intake: never Substance use: never Substance use type: does not use Lack of Transportation: No Lack of Food: Never True Current Housing: I Have Housing Concerned About Future Housing: No Difficulty Paying Gas/Electric Bills: No Difficulty Paying for Meds: No Currently Unemployed: No Education: High School Diploma/GED Difficulty w/ Childcare or Family Care: No Additional living arrangements comments: Lives with family in [place]. 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 Spiritual care concerns: No Comments At time of signature, agree with nursing past medical, surgical, social and family history. There is no relevant family history pertinent to the presenting complaint Exam Narrative: GENERAL: Well-appearing, well-nourished, and in no acute distress. HEAD: Normocephalic, atraumatic. EYES: PERRLA, conjunctivae clear NECK: Supple. CHEST: Speaks in full sentences. No respiratory distress. HEART: Regular rate and rhythm. Normal and equal peripheral pulses. EXTREMITIES: Left wrist, hand, digits have grossly normal strength and sensation, normal range of motion. No edema or ecchymosis. 5/5 strength with digit flexion and extension. Normal sensation with sensitivity to light touch and pain. No point tenderness. No open wounds, no skin tenting, no devitalized tissue or atrophy, no trophic changes, no obvious deformity, alignment normal, nearby joints and structures intact. Distal pulses palpable and equal bilaterally, skin warm, d
[2023-12-02 16:48] VITALS: BP 126/87; PULSE 122; RESP 16; TEMP 37.5; O2SAT 100
== END 2023-12-02 17:22 | disposition home or self-care (01) ==
PROVIDERS: Emergency Provider Nurse Practitioner; PCP Family Medicine
DX: S63.502A Unspecified sprain of left wrist, initial encounter (principal); X50.9XXA Other and unspecified overexertion or strenuous movements or postures, initial encounter; D50.9 Iron deficiency anemia, unspecified; F41.8 Other specified anxiety disorders
CPT/HCPCS: 73110; 99213; G0463

== ENCOUNTER 2024-02-06 18:19 | Emergency (ER) | payer OTHER, SELFPAY ==
--- NOTE | ~2024-02-06 | XR_ITS ---
EXAMINATION: XR ankle RT min 3V DATE: 02/06/2024 18:38 INDICATION: Right ankle injury and pain. TECHNIQUE: 4 views of right ankle were obtained. COMPARISON: None. FINDINGS: Bone alignment is normal. No fracture. There is mild midfoot osteoarthritis. There are enth esophytes at the posterior and plantar aspects of calcaneal tuberosity. IMPRESSION: 1. No fracture. Reviewed, dictated and finalized at location E. E [facility]ER IMPRESSION: 1. No fracture.
--- NOTE | 2024-02-06 18:33 | ED.LOWEXIN ---
HPI - Extremity Injury (Lower) General Chief Complaint: Extremity Injury, Lower Stated Complaint: Twisted Ankle Time Seen by Provider: 02/06/24 18:33 Source: patient Mode of arrival: ambulatory Limitations: no limitations History of Present Illness HPI Narrative: Patient is a 28-year-old female who presents with right ankle pain after stepping in a hole and feeling a pop today at 12:30 p.m.. Denies any numbness, tingling or weakness. Denies any bruising or swelling. Still able to ambulate normally. Reports straining that ankle in the past. Has not taken anything for pain. Related Data Home Medications Medication Instructions Recorded Confirmed ferrous sulfate 325 mg (65 mg 325 mg PO DAILY 01/26/20 02/06/24 iron) tablet Allergies Allergy/AdvReac Type Severity Reaction Status Date / Time nickel Allergy Unknown Unknown Verified 02/06/24 18:26 aripiprazole [From Abilify] AdvReac Muscle Verified 02/06/24 18:26 Spasms Review of Systems Review of Systems: All systems reviewed & are unremarkable except as noted in HPI and below Constitutional: Constitutional: Denies body ache(s), Denies chills, Denies fatigue, Denies fever(s), Denies headache(s), Denies malaise and Denies weakness Eyes: Eyes: Denies blurry vision, Denies irritation and Denies loss of vision ENT: Denies otalgia, Denies headache(s), Denies nasal discharge, Denies sinus pain and Denies sore throat Cardiovascular: Cardiovascular: Denies chest pain, Denies irregular heart rhythm and Denies dyspnea Respiratory: Respiratory: Denies dyspnea Gastrointestinal: Gastrointestinal: Denies abdominal pain, Denies melena, Denies hematochezia, Denies diarrhea, Denies nausea and Denies vomiting Musculoskeletal: Musculoskeletal: Denies back pain, Denies myalgias and Reports arthralgias Integumentary/Breasts: Skin/Breast: Denies pruritus and Denies rash Neurologic: Denies headache(s), Denies loss of vision and Denies weakness Psychiatric: Psychiatric: Reports no additional psychiatric complaints Endocrine: Endocrine: Denies fatigue PMFSH Past Medical History Medical History Abnormal echocardiogram Acute respiratory failure Acute respiratory failure with hypoxia Acute sinusitis Chronic seborrheic dermatitis Depression with anxiety Elevated BP without diagnosis of hypertension Iron deficiency anemia, unspecified Pneumonia Tardive dyskinesia Surgical History Surgical History No pertinent past surgical history Family History Family History Grandparent Diabetes mellitus Hypertension Family history of lung cancer, Onset Age: 71 Family history of primary malignant neoplasm of liver, Onset Age: 67 Mother Family history of migraine headaches Patient's mother is in good health Social History Social History Social History: Surrogate medical decision maker: Dorothy Albert, mother. Code status: Full code. Smoking status: Never smoker Alcohol intake: never Substance use: never Substance use type: does not use Lack of Transportation: No Lack of Food: Never True Current Housing: I Have Housing Concerned About Future Housing: No Difficulty Paying Gas/Electric Bills: No Difficulty Paying for Meds: No Currently Unemployed: No Education: High School Diploma/GED Difficulty w/ Childcare or Family Care: No Additional living arrangements comments: Lives with family in [place]. 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 Spiritual care concerns: No Comments At time of signature, agree with nursing past medical, surgical, social and family history. There is no relevant family history pertinent to the presenting complaint. Exam Const: General: cooperative, healthy appea
[2024-02-06 18:37] VITALS: BP 131/81; PULSE 97; RESP 16; TEMP 37.3; O2SAT 99
== END 2024-02-06 18:57 | disposition home or self-care (01) ==
PROVIDERS: Emergency Provider Nurse Practitioner Family; PCP Family Medicine
DX: S93.401A Sprain of unspecified ligament of right ankle, initial encounter (principal); S96.911A Strain of unspecified muscle and tendon at ankle and foot level, right foot, initial encounter; X50.9XXA Other and unspecified overexertion or strenuous movements or postures, initial encounter
CPT/HCPCS: 73610; 99213; G0463

== ENCOUNTER 2024-04-14 21:20 | Emergency (ER) | payer OTHER, SELFPAY ==
[2024-04-14] VITALS (10 sets, daily range): BP systolic 134–176; BP diastolic 82–94; PULSE 83–120; RESP 15–28; TEMP 36–37.3; O2SAT 97–100
--- NOTE | ~2024-04-14 | XR_ITS ---
EXAMINATION: XR chest 1V portable Exam Date/Time: 04/14/2024 22:45 CDT HISTORY: fever Comparison: 10/07/2023. RESULT: Lines, tubes, and devices: None. Lungs and pleura: Clear. Cardiomediastinal silhouette: Stable. Other: No acute osseous or upper abdominal finding. IMPRESSION: No acute cardiopulmonary process. Reviewed, dictated and finalized at location K.
--- NOTE | 2024-04-14 22:34 | ECG_ITS ---
SEE SCANNED COPY FOR CONFIRMED REPORT MTDD
--- NOTE | 2024-04-14 22:46 | ED.GENADULT ---
HPI - General Adult General Chief complaint: Fever Stated complaint: neck pain, headache Time Seen by Provider: 04/14/24 22:29 History of Present Illness HPI narrative: this is a pleasant 28-year-old female presenting ED with chief of fevers. Over the weekend the patient was having pain in her shoulders/neck that led to a tension headache. This was relatively normal for patient. However over the weekend she spiked a fever of 101. She then read on the Internet fevers and neck pain could be a sign of meningitis so she came to the hospital to be evaluated. She is also concerned because she felt she had a rash on her arms. She typically has a mild follicular rash over the top of her arms but now she believes it is spreading to the underside of her arms. patient still has fevers neck pain and a headache, no chest pain difficulty breathing nausea vomiting diarrhea abdominal pain urinary symptoms. Patient is fully vaccinated. She does not have any other risk factors for meningitis. no photophobia or phonophobia no seizures or altered mental status. Related Data Home Medications Medication Instructions Recorded Confirmed ferrous sulfate 325 mg (65 mg 325 mg PO DAILY 01/26/20 02/12/24 iron) tablet albuterol sulfate 90 mcg/actuation 1 - 2 puff inhalation Q4-6H PRN 02/12/24 02/12/24 aerosol inhaler Allergies Allergy/AdvReac Type Severity Reaction Status Date / Time nickel Allergy Unknown Unknown Verified 02/12/24 11:07 aripiprazole [From Abilify] AdvReac Muscle Verified 02/12/24 11:07 Spasms PMFSH Past Medical History Medical History Abnormal echocardiogram Acute respiratory failure Acute respiratory failure with hypoxia Acute sinusitis Anemia Chest tightness Chronic seborrheic dermatitis Depression with anxiety Elevated BP without diagnosis of hypertension Iron deficiency anemia, unspecified Lump of left wrist Pneumonia Tardive dyskinesia Surgical History Surgical History No pertinent past surgical history Family History Family History Grandparent Diabetes mellitus Hypertension Family history of lung cancer, Onset Age: 71 Family history of primary malignant neoplasm of liver, Onset Age: 67 Mother Family history of migraine headaches Patient's mother is in good health Social History Social History Social History: Surrogate medical decision maker: Dorothy Albert, mother. Code status: Full code. Smoking status: Never smoker Alcohol intake: never Substance use: never Substance use type: does not use Lack of Transportation: No Lack of Food: Never True Current Housing: I Have Housing Concerned About Future Housing: No Difficulty Paying Gas/Electric Bills: No Difficulty Paying for Meds: No Currently Unemployed: No Education: High School Diploma/GED Difficulty w/ Childcare or Family Care: No Additional living arrangements comments: Lives with family in [place]. 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 Spiritual care concerns: No Exam Narrative: APPEARANCE: Patient is well-appearing Head: atraumatic. no erythema posterior pharynx EYES: EOMI, NOSE: Atraumatic NECK: soft, supple, no meningismus, Brudzinski negative RESPIRATORY: No increased rate of breathing clear to auscultation CARDIOVASCULAR: tachycardic and hypertensive in triage but this resolved to normal vital signs without intervention. ABDOMINAL: Non-distended soft nontender no guarding or rebound MUSCULOSKELETAl: No obvious deformities NEURO: Alert. Cranial nerves 2-12 grossly intact. Sensation light touch, motor function cerebellar function intact for 4 extremities. Gait exam was normal. SKIN:: warm to touch PSYCHIATRIC: Normal affect
[2024-04-14 23:07] LABS: Basophils Percent Auto 0.6 % (0.2-1.2); Hematocrit 44.8 % (37.0-47.0); Hemoglobin 15.2 g/dL (12.0-15.0); Immature Granulocyte Absolute 0.02 K/mm3 (0.00-0.031); Immature Granulocyte Percent A 0.6 % (0-0.5); Lymphocytes Absolute Auto 0.84 K/mm3 (0.9-3.2); Lymphocytes Percent Auto 25.5 % (18.3-44.2); Mean Corpuscular HGB Conc 33.9 g/dl (32-36); Mean Corpuscular Hemoglobin 30.8 pg (26-34); Mean Corpuscular Volume 90.7 fl (80-100); Mean Platelet Volume 10.7 fl (7.4-10.4); Monocytes Absolute Auto 0.3 K/mm3 (0.1-0.6); Monocytes Percent Auto 9.1 % (2.6-8.5); Neutrophils Absolute Auto 2.1 K/mm3 (1.3-6.7); Neutrophils Percent Auto 64.2 % (45.5-73.1); Platelet Count Result 171 k/mm3 (150-375); Red Blood Count 4.94 M/mm3 (4.2-5.4); Red Cell Distribution Width 12.7 % (11.5-14.5); White Blood Count 3.3 K/mm3 (4.5-10.0)
[2024-04-14] MEDS: ACETAMINOPHEN 500 MG TABLET 1000 MG PO (23:13)
[2024-04-14] MEDS: KETOROLAC 15 MG/ML VIAL (*BKC) IV PUSH (23:13)
[2024-04-14] MEDS: SODIUM CHLORIDE 0.9% IV 1,000 ML 999 ML IV CONT (23:14)
[2024-04-14 23:19] LABS: Alanine Aminotransferase 78 U/L (6-35); Albumin Level 4.4 g/dL (3.5-5.1); Alkaline Phosphatase 88 U/L (38-126); Anion Gap 11 mmol/L (4-12); Aspartate Amino Transferase 68 U/L (14-36); Bilirubin,Total 0.6 mg/dL (0.2-1.3); Blood Urea Nitrogen 10 mg/dL (7-17); Calcium 8.9 mg/dL (8.4-10.2); Carbon Dioxide 23 mmol/L (22-30); Chloride 103 mmol/L (98-107); Estimated CRCL calculation 112 ml/min; Estimated Glomerular Filt Rate > 60; Glucose 107 mg/dL (65-110); Magnesium 2.1 mg/dL (1.6-2.3); Potassium 3.8 mmol/L (3.4-5.0); Sodium 137 mmol/L (137-145)
[2024-04-14 23:21] LABS: Appearance Urine Clear (Clear); Bacteria Urine None Seen /hpf; Bilirubin Urine Negative (Negative); Blood Urine 2+ (Negative); Color Urine Yellow (Yellow); Glucose Urine UA Negative (Negative); Ketones Urine Negative (Negative); Leukocyte Esterase Ur Negative LEU/UL (Negative); Nitrate Urine Negative (Negative); Non Pathogenic Casts 0-2; Protein Urine Trace mg/dL (Negative); Specific Grav Ur 1.009 (1.001-1.035); Squamous Epithelial Cell Urine Few /hpf (Few); Urobilinogen Urine 0.2 mg/dL (<2.0); WBC Urine 0-5 /hpf (0-3)
[2024-04-14 23:21] LABS: Lactic Acid Reflex 1.4 mmol/L (0.7-2.0)
[2024-04-14 23:28] LABS: Glucose Point of Care 123 mg/dl (65-105)
[2024-04-14 23:30] LABS: Add Urine Microscopic? YES
[2024-04-14 23:47] LABS: Influenza A QL RT-PCR Negative (Negative); Influenza B QL RT-PCR Negative (Negative); RSV RNA, RT-PCR Negative (Negative); SARS-CoV-2 RNA PCR Negative (Negative)
[2024-04-15 00:37] VITALS: BP 127/76; PULSE 68; RESP 16; O2SAT 97
== END 2024-04-15 00:38 | disposition home or self-care (01) ==
PROVIDERS: Emergency Provider Emergency Medicine; PCP Family Medicine
DX: B34.9 Viral infection, unspecified (principal); F41.8 Other specified anxiety disorders; Z20.822 Contact with and (suspected) exposure to COVID-19
CPT/HCPCS: 36415; 71045; 80053; 81001; 81025; 82948; 83605; 83735; 85025; 87637; 93005; 96361; 96374; 99284; A9270; J1885; J7030

== ENCOUNTER 2025-07-04 13:06 | Emergency (ER) | payer OTHER, SELFPAY ==
--- NOTE | ~2025-07-04 | XR_ITS ---
EXAMINATION: XR chest 2V Exam Date/Time: 07/04/2025 15:40 CDT HISTORY: chest pressure Comparison: 04/14/2024. RESULT: Lines, tubes, and devices: None. Lungs and pleura: Clear. Cardiomediastinal silhouette: Stable. Other: No acute osseous or upper abdominal finding. IMPRESSION: No acute cardiopulmonary process. Reviewed, dictated and finalized at location K.
--- OUTSIDE RECORDS SUMMARY | 2025-07-04 13:08 | XMS_ITS | Clinical Summary ---
Author Organization [facility] Address [facility] [place] [address] Care Team Providers Care Quick Print Operator Name Role Phone Unavailable Primary Care Provider Unavailabl e Source Comments [facility],non-owned Affiliates and Associated Physician Practices is amultiple site organization consisting of ambulatory clinics and hospital sitesin [place], [place], [place] and [place]. This disclosure is being madepursuant to the Care Everywhere program and may not contain all information available regarding this patient. Last updated 18.[facility] Allergies No known active allergies Medications * Be aware that medications may not be up to date on this document. Alwaysverify current medications with the patient. sertraline (ZOLOFT) 50 MG tablet Take 50 mg by mouth once daily Active ALPRAZolam (XANAX) 0.25 MG tablet Take 0.25 mg by mouth 3 times daily as needed for Anxiety Active Family History Medical History Relation Name Comments Hypertension Maternal Grandmother Diabetes - Type 2 Paternal Grandmother Cancer - Other Sister neuroblastoma Relation Name Status Comments Maternal Grandmother Paternal Grandmother Sister Alive Social History Tobacco Use Types Packs/Day Years Used Date Smoking Tobacco: Never Smokeless Tobacco: Never Comments No Sex and Gender Information Value Date Recorded Sex Assigned at Not on file Legal Sex Female 8:36 AM CDT Gender Identity Not on file Sexual Orientation Not on file Last Filed Vital Signs Vital Sign Reading Time Taken Comments Blood Pressure 120/78 05/28/2019 3:20 PM CDT Pulse 88 05/28/2019 3:20 PM CDT Temperature 37.1 C (98.8 F) 05/28/2019 3:20 PM CDT Respiratory Rate 16 05/28/2019 3:20 PM CDT Oxygen Saturation 98% 05/28/2019 3:20 PM CDT Inhaled Oxygen Concentration - - Weight 95.3 kg (210 lb) 05/28/2019 3:20 PM CDT Height 172.7 cm (5' 8) 05/28/2019 3:20 PM CDT Body Mass Index 31.93 05/28/2019 3:20 PM CDT Plan of Treatment Health Maintenance Due Date Last Done Comments HIV SCREENING 2010 HEPATITIS C SCREENING 10/05/2013 DTAP/TDAP/TD VACCINES (1 - Tdap) 2014 HEPATITIS B VACCINE (1 of 3 - 19+ 3-dose series) 2014 HPV VACCINE (1 - 3-dose SCDM series) 2022 COVID-19 VACCINE (1 - 2023-2 5 season) 2024 DEPRESSION SCREENING 12/02/2024 INFLUENZA VACCINE (#1) 2025 ZOSTER VACCINE (1 of 2) 2045 HIB VACCINE Aged Out No longer eligi ble based on patient's age to complete this topic MENINGOCOCCAL (Group B) VACC INE SHARED DECISION-MAKING Aged Out No longer eligibl e based on patient's age to complete this topic MENINGOCOCCAL GROUPS A/C/Y/W VACCINE Aged Out No longer eligible b ased on patient's age to complete this topic PNEUMOCOCCAL VACCINE Aged Out No long er eligible based on patient's age to complete this topic Insurance [address] [place] [address]
--- OUTSIDE RECORDS SUMMARY | 2025-07-04 13:08 | XMS_ITS | Patient Health Record ---
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 Name Role Phone Roby Haney Unavailable [phone] Reason For Referral No Information Medications Medication SIG (Take, Route, Frequency, Duration) Notes Start Date End Date Status FLUoxetine HCl 10 MG Oral 12/08/2020 Active ALPRAZolam 0.25 MG Oral 12/08/2020 Active QUEtiapine Fumarate 50 MG Oral 12/08/2020 Active ARIPiprazole 2 MG Oral 12/08/2020 A ctive hydrOXYzine HCl 25 MG Oral 12/08/2020 Active FLUoxetine HCl 40 MG Oral 12/08/2020 Active lamoTRIgine 25 MG Oral 12/08/2020 A ctive FLUoxetine HCl 20 MG Oral 12/08/2020 Active Iron *Pick strength-form from [employer] for eRX* 12/08/2020 Active Plan Of Treatment No Information Insurance Providers Payer Name Payer Address Payer Phone Subscriber Number Group Number Insured Name Patient Relationship to Insured Coverage Start Date Coverage End Date [facility] [address] [place] [address] [id number] VERA GALVAN Child - Insured has Financial Responsibility
[2025-07-04 13:09] VITALS: BP 159/91; PULSE 107; RESP 20; TEMP 36.4; O2SAT 100
--- NOTE | 2025-07-04 15:31 | ECG_ITS ---
Test Date: 2025-07-04 16:30:54 Measurements Intervals [place] Rate: 88 P: 24 NC: 137 QRS: 30 QRSD: 88 T: 8 QT: 372 QTc: 452 Interpretive Statements SINUS RHYTHM BORDERLINE ST-T WAVE ABNORMALITY- INFERIOR LEADS BASELINE ARTIFACT- I, II, III, AVR, AVL, AVF, V1-V2 BORDERLINE ECG No previous ECG available for comparison Electronically Signed On 07-04-2025 20:22:35 CDT by Bartolome Drake D.O.
--- NOTE | 2025-07-04 15:32 | ED.GENADULT ---
HPI - General Adult General Chief complaint: Unspecified Stated complaint: EXTREMITY CHILLED, TROUBLE SWALLOWING Time Seen by Provider: 07/04/25 14:58 History of Present Illness HPI narrative: Patient is a 29-year-old female who presents to the ER with multiple medical complaints. She reports she believes she has a ?undiagnosed autoimmune disorder.Patient reports her symptoms have been going on for 5 years since she had pneumonia. She reports her symptoms started for this episode on , 3 days ago. Patient endorses symptoms of chest tightness, difficulty swallowing, air hunger, difficulty regulating temperature. She denies feeling something stuck in her throat, recent fever, wheezing, urinary symptoms, abdominal pain. Patient reports her last menstrual period was approximately 6 days ago. She endorses a history of anxiety and gastric reflux. Patient reports she has a primary care provider in [place]. She denies any alcohol or drug use. Patient reports it helps to relieve her symptoms when she lays down. Related Data Home Medications ?Medication ?Instructions ?Recorded ?Confirmed ?Last Taken ?Type ferrous sulfate 325 mg (65 mg 325 mg PO DAILY 01/26/20 12/30/24 Unknown History iron) tablet albuterol sulfate 90 mcg/actuation 1 - 2 puff inhalation Q4-6H PRN 02/12/24 12/30/24 Unknown History aerosol inhaler Allergies Allergy/AdvReac Type Severity Reaction Status Date / Time nickel Allergy Unknown Unknown Verified 12/30/24 08:06 aripiprazole (From Abilify) AdvReac Muscle Verified 12/30/24 08:06 Spasms Review of Systems Review of Systems: All systems reviewed & are unremarkable except as noted in HPI and below PMFSH Past Medical History Medical History Restless sleeper Multifocal pneumonia Fluttering sensation of heart Elevated glucose Body mass index (BMI) of 40.1 to 44.9 in adult Viral rash Chest tightness Lump of left wrist Anemia Elevated BP without diagnosis of hypertension Acute sinusitis Abnormal echocardiogram Acute respiratory failure with hypoxia Depression with anxiety Acute respiratory failure Pneumonia Chronic seborrheic dermatitis Tardive dyskinesia Iron deficiency anemia, unspecified Surgical History Surgical History No pertinent past surgical history Family History Family History Grandparent Diabetes mellitus Hypertension Family history of lung cancer, Onset Age: 71 Family history of primary malignant neoplasm of liver, Onset Age: 67 Mother Family history of migraine headaches Patient's mother is in good health Social History Social History Social History: Surrogate medical decision maker: Dorothy Albert, mother. Code status: Full code. Smoking status: Never smoker Alcohol intake: never Substance use: never Substance use type: does not use Lack of Transportation: No Lack of Food: Never True Current Housing: I Have Housing Concerned About Future Housing: No Difficulty Paying Gas/Electric Bills: No Difficulty Paying for Meds: No Currently Unemployed: No Education: High School Diploma/GED Difficulty w/ Childcare or Family Care: No Additional living arrangements comments: Lives with family in [place]. 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 Spiritual care concerns: No Exam Narrative: GENERAL: Well appearing, obese, non-toxic, in no acute distress. HEAD: Normocephalic, atraumatic. NECK: Supple. No adenopathy, no masses. RESPIRATORY: Airway patent, respirations nonlabored. Clear to auscultation bilaterally, no rales, rhonchi, wheezing. CARDIOVASCULAR: Regular rate and rhythm without murmurs, rubs, or gallops. Peripheral pulses 2+ and equal bilaterally. ABDOMINAL: Soft, nontender, nondistended, no hepatosplenomegaly. Normoactive BS. MUSCULOSKELETAL: Moves all extremities. Strength/ROM intact without gross deformities. SKIN: Warm, dry, normal color. No rashes. NEURO: A&O X3. Speech clear. Cranial nerves II-XII intact. No ataxic movements. PSYCHIATRIC: Appropriate mood and affect. Normal interaction. Course Vital Signs Vital signs: Vital Signs Temperature 36.4 C L 07/04/25 13:09 Pulse Rate 107 H 07/04/25 13:09 Respiratory Rate 20 07/04/25 13:09 Blood Pressure 159/91 H 07/04/25 13:09 Pulse Oximetry 100 07/04/25 13:09 Oxygen Delivery Room Air 07/04/25 13:09 Temperature 36.4 C L 07/04/25 13:09 Pulse Rate 107 H 07/04/25 13:09 Respiratory Rate 20 07/04/25 13:09 Blood Pressure 159/91 H 07/04/25 13:09 Pulse Oximetry 100 07/04/25 13:09 Oxygen Delivery Room Air 07/04/25 13:09 Medical Decision Making MDM Narrative Medical decision making narrative: Patient is a 29-year-old female who presents to the ER with multiple medical complaints. She reports she believes she has a ?undiagnosed autoimmune disorder. Patient reports her symptoms have been going on for 5 years since she had pneumonia. She reports her symptoms started for this episode on , 3 days ago. Patient endorses symptoms of chest tightness, difficulty swallowing, air hunger, difficulty regulating temperature. She denies the feeling something stuck in her throat, recent fever, wheezing, urinary symptoms, abdominal pain. Patient reports her last menstrual period was approximately 6 days ago. She endorses a history of anxiety and gastric reflux. Patient reports she has a primary care provider in [place]. She denies any alcohol or drug use. Patient reports it helps to relieve her symptoms when she lays down. Labs Ordered: CBC, CMP, UA, D-dimer, lipase, INR, PTT, UDS, troponin Imaging Ordered: Chest x-ray Medications Ordered: None necessary Results: Patient's CBC indicates white blood cell count of 12.1, hemoglobin of 15.2, neutrophils of 82.9%, lymphocytes 10.7%. Her CMP was largely unremarkable. Patient's coags and D-dimer were both within normal limits. Her urinary head no acute abnormalities. Patient's chest x-ray did not indicate any acute cardiopulmonary abnormalities. Diagnosis: Atypical chest pain, anxiety Risks: HEART score: low risk HEART Score for Major Cardiac Events from [email or web address] on 07/04/2025 All calculations should be rechecked by clinician prior to use RESULT SUMMARY: 0 points Low Score (0-3 points) Risk of MACE of 0.9-1.7%. INPUTS: History ?> 0 = Slightly suspicious EKG ?> 0 = Normal Age ?> 0 = <45 Risk factors ?> 0 = No known risk factors Initial troponin ?> 0 = <=Normal limit Patient Education/Shared MDM: Results of lab work and imaging shared with patient and her mother. She verbalizes understanding of results. Patient strongly advised to maintain hydration status upon discharge and follow-up with her PCP as soon as possible. She will not be discharged home with any new prescriptions. Strict return precautions provided. Patient verbalized understanding and is in agreement with plan. Vital signs stable at time of discharge. All questions answered. Differential Diagnosis Differential Diagnosis: Pneumonia, urinary tract infection, atypical chest pain, anxiety Vital Signs Vital Signs: Vital Signs Temperature 36.4 C L 07/04/25 13:09 Pulse Rate 107 H 07/04/25 13:09 Respiratory Rate 20 07/04/25 13:09 Blood Pressure 159/91 H 07/04/25 13:09 Pulse Oximetry 100 07/04/25 13:09 Oxygen Delivery Room Air 07/04/25 13:09 Temperature 36.4 C L 07/04/25 13:09 Pulse Rate 107 H 07/04/25 13:09 Respiratory Rate 20 07/04/25 13:09 Blood Pressure 159/91 H 07/04/25 13:09 Pulse Oximetry 100 07/04/25 13:09 Oxygen Delivery Room Air 07/04/25 13:09 Lab Data Lab results reviewed: Yes I reviewed the patient's lab results. 07/04/25 16:18 07/04/25 16:18 Labs: Lab Results 07/04/25 07/04/25 Range/Units 16:18 16:24 WBC 12.1 H (4.5-10.0) K/mm3 RBC 4.88 (4.2-5.4) M/mm3 Hgb 15.2 H (12.0-15.0) g/dL Hct 44.1 (37.0-47.0) % MCV 90.4 (80-100) fl MCH 31.1 (26-34) pg MCHC 34.5 (32-36) g/dl RDW 12.3 (11.5-14.5) % Plt Count 344 D (150-375) k/mm3 MPV 10.3 (7.4-10.4) fl Immature Gran % (Auto) 0.3 (0-0.5) % Neut % (Auto) 82.9 H (45.5-73.1) % Lymph % (Auto) 10.7 L (18.3-44.2) % Cocke % (Auto) 5.8 (2.6-8.5) % Eos % (Auto) 0.0 (0-4.4) % Baso % (Auto) 0.3 (0.2-1.2) % Lymph # (Auto) 1.30 (0.9-3.2) K/mm3 Cocke # (Auto) 0.7 H (0.1-0.6) K/mm3 Eos # (Auto) 0.0 (0-0.3) K/mm3 Baso # (Auto) 0.0 (0.0-0.1) K/mm3 Abs Immat Gran (auto) 0.04 H (0.00-0.031) K/mm3 Absolute Neuts (auto) 10.1 H (1.3-6.7) K/mm3 Absolute Nucleated RBC 0.000 (0.0-0.012) K/mm3 Nucleated RBC % 0.0 (0.0-0.2) % PT 13.4 (11.1-14.7) Seconds INR 1.0 APTT 31.0 (22.3-36.8) Seconds D-Dimer < 0.27 (<0.48) ug/mL Sodium 137 (137-145) mmol/L Potassium 3.9 (3.4-5.0) mmol/L Chloride 106 (98-107) mmol/L Carbon Dioxide 20 L (22-30) mmol/L Anion Gap 11 (4-12) mmol/L BUN 12 (7-17) mg/dL Creatinine 0.80 (0.7-1.0) mg/dL Estim Creat Clear Calc 122 ml/min Estimated GFR > 60 (59 - ) Glucose 94 (65-110) mg/dL Calcium 9.9 (8.4-10.2) mg/dL Total Bilirubin 0.4 (0.2-1.3) mg/dL AST 30 (14-36) U/L ALT 30 (6-35) U/L Alkaline Phosphatase 68 (38-126) U/L Troponin I < 0.012 (0.000-0.034) ng/mL Total Protein 8.1 (6.3-8.2) g/dL Albumin 4.4 (3.5-5.1) g/dL Lipase 42 (23-300) U/L Urine Color Yellow (Yellow) Urine Appearance Clear (Clear) Urine pH 7.5 (5.0-9.0) Ur Specific [place] 1.005 (1.001-1.035) Urine Protein Negative (Negative) mg/dL Urine Glucose (UA) Negative (Negative) mg/dL Urine Ketones Negative (Negative) mg/dL Ur Blood (Man) Trace (Negative) Urine Nitrate Negative (Negative) Urine Bilirubin Negative (Negative) Urine Urobilinogen 0.2 (<2.0) mg/dL Leukocyte Esterase Rfl Negative (Negative) JASWINDER/UL Urine RBC 3-5 H (0-2) /hpf Urine WBC 0-5 (0-3) /hpf Ur Squamous Epith Cells Occasional (Few) /hpf Urine Bacteria None seen /hpf Urine Casts 0-2 POC Urine HCG, Qual Negative (Negative) Urine Opiates Screen Negative (Negative) Urine Methadone Screen Negative (Negative) Ur Barbiturates Screen Negative (Negative) Ur Phencyclidine Scrn Negative (Negative) Ur Amphetamine Screen Negative (Negative) U Benzodiazepines Scrn Negative (Negative) Urine Cocaine Screen Negative (Negative) U Cannabinoids Screen Negative (Negative) Imaging Data Attestation: I personally reviewed and interpreted this imaging study as follows: Radiologist's impression: Impressions Chest X-Ray 07/04/25 16:20 IMPRESSION: No acute cardiopulmonary process. Discharge Plan Discharge Clinical Impression: Chest tightness Patient Disposition: Home Condition: Stable Instructions: Antibiotic Form Additional Instructions: Please return to the ER with any worsening symptoms. Follow-up with primary care provider as soon as possible. You may take Tylenol and ibuprofen for pain control. Patient Language: Panamanian Prescriptions: No Action fluoxetine 60 mg tablet 60 mg PO QAM Qty: 90 3RF hydroxyzine pamoate [Vistaril] 25 mg capsule 25 mg PO TID PRN (Reason: anxiety) Qty: 90 5RF albuterol sulfate 90 mcg/actuation HFA aerosol inhaler 1 - 2 puff inhalation Q4-6H PRN ibuprofen 800 mg tablet 800 mg PO TID PRN (Reason: pain) 7 Days Qty: 21 0RF acetaminophen 500 mg tablet 1,000 mg PO TID PRN (Reason: pee) 7 Days Qty: 42 0RF ferrous sulfate 325 mg (65 mg iron) tablet 325 mg PO DAILY Follow-up/Referrals: Alejandro Mesa MD [Primary Care Provider] - Time of Disposition: 19:14
--- OUTSIDE RECORDS SUMMARY | 2025-07-04 15:50 | XMS_ITS | Clinical Summary ---
Author Organization [facility] Address [facility] [facility] [place] [address] Care Team Providers Care Hired Help Name Role Phone Unavailable Primary Care Provider Unavailabl e Source Comments [facility],non-owned Affiliates and Associated Physician Practices is amultiple site organization consisting of ambulatory clinics and hospital sitesin [place], [place], [place] and [place]. This disclosure is being madepursuant to the Care Everywhere program and may not contain all information available regarding this patient. Last updated 18.[facility] Allergies No known active allergies Medications * [...] patient's age to complete this topic [place] [address] [address] [place] [address]
[2025-07-04 16:26] LABS: BEDSIDEPREGUCG Negative (Negative)
[2025-07-04 16:26] LABS: Hematocrit 44.1 % (37.0-47.0); Hemoglobin 15.2 g/dL (12.0-15.0); Immature Granulocyte Percent A 0.3 % (0-0.5); Lymphocytes Absolute Auto 1.30 K/mm3 (0.9-3.2); Mean Corpuscular HGB Conc 34.5 g/dl (32-36); Mean Corpuscular Hemoglobin 31.1 pg (26-34); Mean Corpuscular Volume 90.4 fl (80-100); Nucleated Red Blood Cells Absolute Auto 0.000 K/mm3 (0.0-0.012); Nucleated Red Blood Cells Perc 0.0 % (0.0-0.2); Platelet Count Result 344 k/mm3 (150-375); Red Blood Count 4.88 M/mm3 (4.2-5.4); White Blood Count 12.1 K/mm3 (4.5-10.0)
[2025-07-04 16:31] LABS: Add Urine Microscopic? YES; Appearance Urine Clear (Clear); Glucose Urine UA Negative (Negative); Leukocyte Esterase Ur Negative LEU/UL (Negative); Nitrate Urine Negative (Negative); Non Pathogenic Casts 0-2; Specific Grav Ur 1.005 (1.001-1.035)
[2025-07-04 16:37] LABS: INR 1.0; Prothrombin Time 13.4 Seconds (11.1-14.7)
[2025-07-04 16:38] LABS: Partial Thromboplastin Time 31.0 Seconds (22.3-36.8)
[2025-07-04 16:44] LABS: Cannabinoid Screen Urine Negative (Negative)
[2025-07-04 16:59] LABS: Alanine Aminotransferase 30 U/L (6-35); Albumin Level 4.4 g/dL (3.5-5.1); Alkaline Phosphatase 68 U/L (38-126); Anion Gap 11 mmol/L (4-12); Aspartate Amino Transferase 30 U/L (14-36); Bilirubin,Total 0.4 mg/dL (0.2-1.3); Blood Urea Nitrogen 12 mg/dL (7-17); Calcium 9.9 mg/dL (8.4-10.2); Carbon Dioxide 20 mmol/L (22-30); Chloride 106 mmol/L (98-107); Estimated CRCL calculation 122 ml/min; Estimated Glomerular Filt Rate > 60; Glucose 94 mg/dL (65-110); Lipase 42 U/L (23-300); Potassium 3.9 mmol/L (3.4-5.0); Sodium 137 mmol/L (137-145); Total Protein 8.1 g/dL (6.3-8.2)
[2025-07-04 17:06] LABS: Troponin I < 0.012 ng/mL (0.000-0.034)
== END 2025-07-04 19:33 | disposition home or self-care (01) ==
PROVIDERS: Emergency Provider Registered Nurse; PCP Family Medicine
DX: R07.89 Other chest pain (principal); F41.9 Anxiety disorder, unspecified; K21.9 Gastro-esophageal reflux disease without esophagitis
CPT/HCPCS: 36415; 71046; 80053; 80307; 81001; 81025; 83690; 84484; 85025; 85380; 85610; 85730; 93005; 99284

== ENCOUNTER 2025-08-23 10:36 | Outpatient (CLI) | payer OTHER, SELFPAY ==
--- NOTE | 2025-08-23 10:52 | EST_ITS ---
Patient Info Name: Maritza Albert Age: 29 years : 1995 Gender: Female Ht: 68 in Wt: 250 lbs BSA: 2.38 m2 HR: 83 bpm BP: 126 / 63 mmHg Exam Date: 08/23/2025 10:52 AM Patient Status: O Admit Date: 08/23/2025 Exam Type: CA stress test treadmill A treadmill exercise stress test was performed. Staff Attending Provider: Tiffany Flaherty Exercise Technologist: Blanche Guillen Exercise Physician: Bartolome Drake DO Summary 1. 1. Negative Brandon exercise stress test for ischemic ST changes by ECG criteria. 2. 2. Reduced functional capacity, achieving 7 METs of workload. 3. 3. Hypertensive response to exercise. 4. 4. Appropriate HR response to exercise. 5. 5. Appropriate HR recovery at 1 minute post exercise. 6. 6. No imaging with stress testing. 7. 7. Patient informed of the above results. Protocol: Brandon Stress ECG Details Stage: REST Duration (min): 1 min : 14 sec Speed (mph): 0.0 Grade (%): 0 HR (bpm): 85 SBP (mmHg): 126 DBP (mmHg): 63 METS: --- Stage: REST Duration (min): 4 min : 18 sec Speed (mph): 0.0 Grade (%): 0 HR (bpm): 95 SBP (mmHg): 126 DBP (mmHg): 63 METS: --- Stage: STAGE 1 Duration (min): 1 min : 0 sec Speed (mph): 1.7 Grade (%): 10 HR (bpm): 120 SBP (mmHg): 126 DBP (mmHg): 63 METS: --- Stage: STAGE 1 Duration (min): 2 min : 0 sec Speed (mph): 1.7 Grade (%): 10 HR (bpm): 131 SBP (mmHg): 126 DBP (mmHg): 63 METS: --- Stage: STAGE 1 Duration (min): 3 min : 0 sec Speed (mph): 1.7 Grade (%): 10 HR (bpm): 133 SBP (mmHg): 198 DBP (mmHg): 61 METS: --- Stage: STAGE 2 Duration (min): 1 min : 0 sec Speed (mph): 2.5 Grade (%): 12 HR (bpm): 144 SBP (mmHg): 198 DBP (mmHg): 61 METS: --- Stage: STAGE 2 Duration (min): 2 min : 0 sec Speed (mph): 2.5 Grade (%): 12 HR (bpm): 155 SBP (mmHg): 215 DBP (mmHg): 60 METS: --- Stage: STAGE 2 Duration (min): 3 min : 0 sec Speed (mph): 2.5 Grade (%): 12 HR (bpm): 170 SBP (mmHg): 215 DBP (mmHg): 60 METS: --- Stage: STAGE 3 Duration (min): 0 min : 15 sec Speed (mph): 3.4 Grade (%): 14 HR (bpm): 170 SBP (mmHg): 215 DBP (mmHg): 60 METS: --- Stage: RECOVERY Duration (min): 0 min : 44 sec Speed (mph): 0.0 Grade (%): 0 HR (bpm): 166 SBP (mmHg): 196 DBP (mmHg): 42 METS: --- Stage: RECOVERY Duration (min): 1 min : 44 sec Speed (mph): 0.0 Grade (%): 0 HR (bpm): 139 SBP (mmHg): 196 DBP (mmHg): 42 METS: --- Stage: RECOVERY Duration (min): 2 min : 44 sec Speed (mph): 0.0 Grade (%): 0 HR (bpm): 124 SBP (mmHg): 172 DBP (mmHg): 45 METS: --- Stage: RECOVERY Duration (min): 3 min : 44 sec Speed (mph): 0.0 Grade (%): 0 HR (bpm): 117 SBP (mmHg): 172 DBP (mmHg): 45 METS: --- Stage: RECOVERY Duration (min): 4 min : 44 sec Speed (mph): 0.0 Grade (%): 0 HR (bpm): 110 SBP (mmHg): 172 DBP (mmHg): 45 METS: --- Stage: RECOVERY Duration (min): 5 min : 44 sec Speed (mph): 0.0 Grade (%): 0 HR (bpm): 106 SBP (mmHg): 188 DBP (mmHg): 45 METS: --- Stage: RECOVERY Duration (min): 6 min : 44 sec Speed (mph): 0.0 Grade (%): 0 HR (bpm): 102 SBP (mmHg): 188 DBP (mmHg): 45 METS: --- Stage: RECOVERY Duration (min): 7 min : 44 sec Speed (mph): 0.0 Grade (%): 0 HR (bpm): 101 SBP (mmHg): 127 DBP (mmHg): 54 METS: --- Stage: RECOVERY Duration (min): 8 min : 1 sec Speed (mph): 0.0 Grade (%): 0 HR (bpm): 99 SBP (mmHg): 127 DBP (mmHg): 54 METS: --- Rest HR: 95 bpm Peak HR: 173 bpm Rest Sys BP: 126 mmHg Peak Sys BP: 215 mmHg Max Pred HR: 191 bpm % Max Pred HR: 91 % Target HR: 162 bpm Max RPP: 37,195 bpm*mmHg Villagomez Score: -1 BP Response: Patient exhibited a hypertensive response with stress Termination Reason: Reached target heart rate or workload Cardiac Symptoms: Shortness of breath Max ST Seg Deviation: -1.50 mm Total Time: 6 min : 15 sec Rest Fletcher BP: 63 mmHg Peak Fletcher BP: 60 mmHg Angina Score: None Total METS: 7.4 Resting ECG Sinus rhythm. Stress ECG No ST changes. Arrhythmias None. Report Signatures
--- OUTSIDE RECORDS SUMMARY | 2025-08-23 11:43 | XMS_ITS | Clinical Summary ---
Author Organization [facility] Address [facility] [place] [address] Care Team Providers Care Senior Ux Designer Name Role Phone Unavailable Primary Care Provider Unavailabl e Source Comments [facility],non-owned Affiliates and Associated Physician Practices is amultiple site organization consisting of ambulatory clinics and hospital sitesin [place], [place], [place] and [place]. This disclosure is being madepursuant to the Care Everywhere program and may not contain all information available regarding this patient. Last updated 18.[facility] Allergies No known active allergies Medications * [...] VACCINE (1 - 3-dose SCDM series) 2022 DEPRESSION SCREENING 12/02/2024 COVID-19 VACCINE (1 - 2023-2 5 season) 2025 INFLUENZA VACCINE (#1) 2025 ZOSTER VACCINE (1 [...] patient's age to complete this topic [place] [address] [place] [address] [facility] Address: [facility] [id number] [place] [phone]
--- OUTSIDE RECORDS SUMMARY | 2025-08-23 11:43 | XMS_ITS | Patient Health Record ---
Author Organization [facility] [employer] [facility] Address [address] [facility] [address] [place] [address] Care Team Providers Care Food Beverage Attendant Name Role Phone Roby Haney Unavailable [phone] Reason For Referral No Information Medications Medication SIG (Take, Route, Frequency, Duration) Notes Start Date End Date Status FLUoxetine HCl 10 MG Capsule Oral 12/08/2020 Active ALPRAZolam 0.25 MG Tablet Oral 12/08/2020 Active QUEtiapine Fumarate 50 MG Tablet Oral 12/08/2020 Active ARIPiprazole 2 MG Tablet Oral 12/08/2020 Active hydrOXYzine HCl 25 MG Tablet Oral 12/08/2020 Active FLUoxetine HCl 40 MG Capsule Oral 12/08/2020 Active lamoTRIgine 25 MG Tablet Oral 12/08/2020 Active FLUoxetine HCl 20 MG Capsule Oral 12/08/2020 Active Iron *Pick strength-form from [facility] for eRX* 12/08/2020 Active Social History Social History Additional Details Category Social Info Options Details Migrated Social History Migrated Social History Alcohol Intake: None 09/01/2020,Tobacco Years: Never smoker 09/01/2020 Plan Of Treatment No Information Insurance Providers Payer Name Payer Address Payer Phone Subscriber Number Group Number Insured Name Patient Relationship to Insured Coverage Start Date Coverage End Date [facility] [address] [place] [address] [id number] VERA GALVAN Child - Insured has Financial Responsibility
--- NOTE | 2025-08-23 14:11 | WPDPFTINT ---
PFT Procedure Performed PFT Procedure Performed Spirometry with Pre/Post Bronchodilator Plethysmography (Lung Vol) Diffusing Cap (DLCO) Flow Vol Loop PFT Interpretation This is a pulmonary function test with pre and post-bronchodilator spirometry, plethysmography and diffusing capacity. The test was performed and results interpreted in accordance with the 2019 and 2005 ATS/ERS Task Force guidelines respectively using the Global Lung Function Initiative-2012 reference equations. Patient demonstrated good effort and cooperation. Reproducibility criteria were met. The quality of the pre bronchodilator spirometry maneuver was Grade A and post bronchodilator spirometry maneuver was Grade A. Findings: Spirometry: The contour the inspiratory and expiratory flow tracing are normal. The pre bronchodilator FVC is 4.60 L, 105% predicted. The pre bronchodilator FEV1 is 3.74 L, 102% predicted. The pre bronchodilator FEV1: FVC ratio is 81%. The post bronchodilator FVC is 4.48 L, representing a 3% decrease. The post bronchodilator FEV1 is 3.79 L, representing a 1% increase. The post bronchodilator FEV1: FVC ratio is 85%. Plethysmography: The total lung capacity is 5.52 L, 97% predicted. The functional residual capacity is 2.25 L, 72% predicted. The residual volume is 0.92 L, 59% predicted. Diffusing capacity: The diffusing capacity unadjusted for hemoglobin and carboxyhemoglobin is 32.6, 122% predicted. The diffusing capacity adjusted for alveolar volume is 5.99, 126% predicted. Impression: The spirometry is normal without evidence of an obstructive abnormality. There is no significant improvement after inhaling a single dose of albuterol. The lung volumes are normal. The diffusing capacity is normal. There are no prior studies for comparison
== END 2025-08-23 10:37 | disposition home or self-care (01) ==
LOC: ANHCARD 10:37
PROVIDERS: PCP Nurse Practitioner Family; Visit Provider Nurse Practitioner Family
DX: R07.89 Other chest pain (principal); R94.31 Abnormal electrocardiogram [ECG] [EKG]
CPT/HCPCS: 93017; 94060; 94726; 94729